=== PATIENT | female | born 1960 | race Caucasian/White ===

== ENCOUNTER 2021-05-24 13:43 | Outpatient (RCR) | payer BC, MEDICAID, SELFPAY ==
--- OUTSIDE RECORDS SUMMARY | 2021-05-24 13:56 | XMS_ITS ---
:1960 Author Care Team Providers Name Role Phone DR. ALLEGRA KLEIN Primary Care Provider [phone] DR. ALLEGRA KLEIN Referring Provider [phone] Allergies Code Code System Name Reaction Severity Status Onset 761980 RxNorm Advil Nausea ? Active ? 113423 RxNorm Aggrenox ? ? Active ? Axert Myalgias ? Active ? (Muscle Pain) 4053 RxNorm Erythromycin Base ? ? Active ? 916316 RxNorm Imitrex ? ? Active ? 759029 RxNorm Lamictal ? ? Active ? 9345692 RxNorm Latex ? ? Active ? 228091 RxNorm Lunesta ? ? Active ? 127170 RxNorm Maxalt ? ? Active ? Pollen Extracts ? ? Active ? 224507 RxNorm Sonata ? ? Active ? Sulfa ? ? Active ? (Sulfonamide Antibiotics) Tree and Shrub ? ? Active ? Pollen 779909 RxNorm Venom-honey Bee ? ? Active ? Wellbutrin ? ? Active ? 529178 RxNorm Zomig ? ? Active ? Medications Name Status Start Date Stop Date ? ? ciprofloxacin 250 mg tablet Active ? Not available Cymbalta 60 mg capsule,delayed release Active ? Not available Take 2 capsules every day by oral route. desonide 0.05 % topical cream Active ? No t available APPLY SPARINGLY AND RUB GENTLY INTO THE AFFECTED AREA(S) BY TOPICAL ROUTE 2 TIMES PER DAY doxycycline hyclate 100 mg capsule Active ? Not available doxycycline monohydrate 100 mg capsule Active ? Not available doxycycline monohydrate 100 mg tablet Active ? Not available Epi E-Z Pen 1:1000 injection syringe Active ? Not available Take 0.03 mL as needed by injection route as needed. fluconazole 150 mg tablet Active ? Not av ailable hydrocodone 5 mg-acetaminophen 325 mg Active ? Not available tablet ketoconazole 2 % topical cream Active ? N ot available lancets 30 gauge Active ? Not available lancing device Active ? Not available nystatin 100,000 unit/gram topical powder Active ? Not available One Touch Ultra Test Strips Active ? Not available use as directed One Touch UltraSoft Lancets Active ? Not available use as directed OneTouch Delica Lancets 33 gauge Active ? Not available OneTouch Ultra Test strips Active ? Not a vailable OneTouch UltraMini kit Active ? Not avail able oxycodone 5 mg tablet Active ? Not availa ble phenazopyridine 200 mg tablet Active ? No t available pramipexole 0.5 mg tablet Active ? Not av ailable Take 1 tablet 3 times a day by oral route. Provigil 200 mg tablet Active ? Not avail able Take 1 tablet every day by oral route. Ritalin 10 mg tablet Active ? Not availab le Take 1 tablet every day by oral route. Ritalin 20 mg tablet Active ? Not availab le Take 1 tablet every day by oral route at noon. Ritalin LA 30 mg capsule,extended release Active ? Not available Take 1 capsule every day by oral route in the morning. triamcinolone acetonide 0.1 % topical Active ? Not available cream Xenical 120 mg capsule Active ? Not avail able Take 1 capsule 3 times a day by oral route with meals. zolpidem ER 12.5 mg tablet,extended release,multiphase Active ? Not available Take 1 tablet every day by oral route at bedtime. Problems Name Status Onset Date Source ? Hyperthyroidism Active 01/09/2016 ? Multinodular Goiter Active 02/14/2016 ? Candidiasis Active 03/13/2016 ? Diabetes Mellitus Active 03/13/2016 ? Hyperlipidemia Active 03/13/2016 ? Morbid Obesity Active 03/13/2016 ? Bipolar Disorder Active 03/13/2016 ? Posttraumatic Stress Disorder Active 03/13/2016 ? Chronic Depression Active 03/13/2016 ? Insomnia Active 03/13/2016 ? Parasomnia Active 03/13/2016 ? Periodic Limb Movement Disorder Active 03/13/2016 ? Restless Legs Active 03/13/2016 ? Chronic Pain Active 03/13/2016 ? Migraine Active 03/13/2016 ? Narcolepsy Active 03/13/2016 ? Carpal Tunnel Syndrome Active 03/13/2016 ? Essential Hypertension Active 03/13/2016 ? Transient Memory Loss Active 03/13/2016 ? Lymphedema Active 03/13/2016 ? Asthma Active 03/13/2016 ? Osteoarthritis Active 03/13/2016 ? Spinal Stenosis of Lumbar Region Active 03/13/2016 ? Chronic Back Pain Active 03/13/2016 ? Tendinitis Active 03/13/2016 ? Myositis Active 03/13/2016 ? Excessive Daytime Sleepiness - Normal Night Active 02/20 ? Sleep Tachycardia Active 03/13/2016 ? Chest Pain Active 03/13/2016 ? Thyroid Hormone Tests Abnormal Active 03/13/2016 ? History of Psychiatric Disorder Unknown 03/13/2016 ? Long-term Drug Therapy Active 03/13/2016 ? Secondary Peripheral Neuropathy Active 03/13/2016 ? Procedures Date Name Performed by ? ? Eye Surgery Procedure Information not av ailable Notes: cataract surgery Results Lab Results Date Name Specimen Result Interpretation Description Value Range Status Address ? ? Glucose, Blood ? Blood 98 ? ? Rhc - Fingerstick, capillary Glucose: Specialty: 103 Blood mg/dl [facility] Past Encounters None recorded. Social History Tobacco Smoking Status Former Smoker Notes: quit 22 years ago Vaccine List None recorded. Plan of Care Reminders Provider Appointments None ? ? recorded. Lab None ? ? recorded. Referral None ? ? recorded. Procedures None ? ? recorded. Surgeries None ? ? recorded. Imaging None ? ? recorded. Vitals Height Weight BMI Blood Pressure 165.1 cm 115.21 kg 42.3 kg/m2 128/80 mm[Hg]
[2021-05-24] MEDS: Normal Saline Flush 10 ML SYR IVP (14:01)
[2021-05-24] MEDS: Heparin 500 UNITS/5 ML SYRINGE IV (14:09)
[2021-05-24 14:38] LABS: Abs Immature Grans 0.08 10^3/uL (0.0-0.06); HCT 42.6 % (36.0-46.0); HGB 13.7 g/dL (11.2-15.7); MCH 32.3 pg (27.0-33.0); MCHC 32.2 % (32.0-36.0); MCV 100.5 fL (80-95); MPV 10.6 fL (8.0-11.0); Nucleated RBC 0 %; Platelet Count 246 10^3/uL (130-400); RBC 4.24 10^6/uL (3.93-5.22); RDW 13.3 % (11.7-14.6); RDW-SD 49.6 fL; WBC 24.86 10^3/uL (4.4-10.8)
[2021-05-24 14:46] LABS: Iron 81 ug/dL (50-170); Total Iron Binding Capacity 273 ug/dL (250-450); Transferrin Sat 30 % (15-50)
[2021-05-24 14:48] LABS: ALT 33 U/L (14-59); AST 19 U/L (15-37); Albumin 3.7 g/dL (3.4-5.0); Alkaline Phosphatase 163 U/L (46-116); Anion Gap 7.8 mmol/L (3-11); BUN 24 mg/dL (7-18); Bilirubin, Total 0.2 mg/dL (0.2-1.0); CO2 29.2 mmol/L (21.0-32.0); Calcium 8.6 mg/dL (8.5-10.1); Chloride 106 mmol/L (98-107); Estimated GFR 56.37 (mL/min/1.73m2); Ferritin 158 ng/mL (8-252); Glucose 87 mg/dL (74-106); Potassium 4.2 mmol/L (3.5-5.1); Sodium 143 mmol/L (136-145); Total Protein 7.3 g/dL (6.4-8.2)
[2021-05-24 14:58] LABS: LDH 170 U/L (81-234)
[2021-05-24 15:05] LABS: Absolute Eosinophil Count 0.75 10^3/uL (0.0-0.7); Absolute Monocyte Count 2.98 10^3/uL (0.1-0.8); Absolute Neutrophil Count 4.23 10^3/uL (1.2-6.7); Bands % 0
[2021-05-24 15:06] LABS: Diff Comment Manual Differential; RBC Morphology Normal
== END 2021-06-20 23:59 | disposition home or self-care (01) ==
LOC: INF 13:43
PROVIDERS: PCP Family Medicine; Visit Provider Internal Medicine Hematology & Oncology
DX: C91.12 Chronic lymphocytic leukemia of B-cell type in relapse (principal); D50.8 Other iron deficiency anemias; Z45.2 Encounter for adjustment and management of vascular access device
CPT/HCPCS: 36591; 80053; 82728; 83540; 83550; 83615; 85025

== ENCOUNTER 2021-11-08 16:12 | Emergency (ER) | payer BC, MEDICAID, SELFPAY ==
[2021-11-08] VITALS (37 sets, daily range): BP systolic 117–155; BP diastolic 60–103; PULSE 103–114; RESP 12–29; TEMP 37.3; O2SAT 94–98
--- NOTE | 2021-11-08 16:00 | RT.EKG_ITS ---
APPROVED REPORT Exam: Resting ECG Reason for Exam: chest pain Patient Location: E HR:112 bpm ECG Measurements Heart Rate 112 AXIS NM 154 P 43 QRSd 88 QRS 47 QT 336 T 41 QTc 459 Conclusion Sinus tachycardia...rate> 99. Sinus. Normal axis. No STEMI. I have reviewed and interpreted ECG and agree with software generated interpretation.
--- NOTE | 2021-11-08 16:13 | ED.GENADUL_ITS ---
Discharge Plan Disposition Patient Disposition: HOME Condition: Improving Discharge Details Clinical Impression: Right-sided chest wall pain, History of chronic lymphocytic leukemia Primary Care Provider: Sonja Navarrete ED Provider: Dawn Ramirez Home Meds and New Rx's Prescriptions: Continued duloxetine [Cymbalta] 60 MG capsule,delayed release(DR/EC) 120 mg PO DAILY Qty: 60 5RF fluticasone propion-salmeterol [Advair Diskus] 1 EACH blister with device 1 puff Inhalation BID 0RF trazodone 150 MG tablet 150 mg PO HS 0RF methylphenidate HCl [Ritalin] 20 MG tablet 20 mg PO TID 0RF Label Comments: 02.07.17 pt states she takes 30mg TID.he Rx Instructions: Dr. Hampton naproxen 500 MG tablet 500 mg PO PRN PRN0RF epinephrine [EpiPen] 0.3 MG/0.3 ML auto-injector 0.3 mg IM PRN PRN0RF albuterol sulfate [ProAir HFA] 8.5 GM HFA aerosol inhaler 2 puff Inhalation PRN PRN0RF clonazepam 1 mg tablet 1 mg TID PRN PRN0RF aripiprazole 5 mg Tablet 5 mg PO DAILY 0RF doxepin 10 mg Capsule 10 mg PO HS 0RF aspirin 81 mg Tablet 81 mg PO DAILY 0RF Trulicity 3 mg/0.5 mL Pen Injector 1.5 mg SUBCUT QWEEK 0RF methylphenidate HCl 20 mg Tablet 60 mg PO DAILY 0RF cyclobenzaprine 5 mg Tablet 5 mg PO TID 0RF Trelegy Ellipta 100-62.5-25 mcg Blister With Device 1 ea INHALATION DAILY 0RF ropinirole 1 mg Tablet 1 mg PO TID 0RF ibuprofen 800 mg Tablet 800 mg PO TID 0RF metoprolol succinate 100 mg Tablet Extended Release 24 Hr 100 mg PO DAILY 0RF venlafaxine 150 mg Capsule,Extended Release 24hr 150 mg PO BID 0RF omeprazole 40 mg Capsule,Delayed Release(Dr/Ec) 40 mg PO DAILY 0RF modafinil 200 mg Tablet 200 mg PO BID 0RF trazodone 150 mg Tablet 150 mg PO QHS 0RF montelukast 10 mg Tablet 10 mg PO QAM 0RF nystatin 100,000 unit/gram Powder TOPICAL QID 0RF ubrogepant 50 mg Tablet 50 mg PO PRN PRN0RF Discharge Instructions Instructions: Chest Wall Pain (ED) Additional Instructions: Your lab work today noted evidence of an elevated white blood cell count consistent with your CLL. Follow-up with your oncologist at [facility] for further evaluation. The remainder of your lab work and EKGs today are reassuring and show no evidence of acute concerning or significant findings. The CT scan of your chest showed no evidence of a blood clot or acute disease in your lungs today. Follow-up with your primary care doctor in 1 week for re-evaluation and for referral for outpatient stress test or rug cleaner hand if your symptoms persist or worsen. Return to the emergency department with any worsening or new concerning symptoms. Discharge Data Discharge Physician: Dawn Ramirez Medical Decision Making 61-year-old female with a history of CLL, obesity, diabetes, COPD, hypertension presents for right-sided chest pain that started in the car while on the way to [facility] for a regular follow-up appointment. Heart rate 110s. Remainder of vitals within normal limits. Low-grade temp at 99.2. EKG notes a rate of 112, sinus, normal at this, no STEMI. Patient has significant tenderness to her right anterior chest but no evidence of cellulitis, trauma or rash. Her lungs are otherwise clear. She has right calf tenderness but otherwise no erythema, edema, ecchymosis. Differential diagnosis includes chest wall strain or sprain, costochondritis, PE. History and presentation does not appear consistent with ACS, or dissection. Considering her age and history, will obtain screening labs, CT chest and give Toradol and reassess. Labs and imaging reviewed. White blood cell count 42, in May it was 24. She states she was told by her oncologist that her white blood cell count has r ecently been increasing secondary to her CLL and they are continuing to monitor it. Normal hemoglobin. Normal electrolytes. Patient had negative initial and delta troponins and [address] chest negative for PE or other acute disease. Her heart rate improved to low 100s. Her pain improved and she felt comfortable going home. She was advised to call her PCP and oncologist tomorrow for follow-up and for referral for outpatient stress test, Holter monitor or echocardiogram if symp toms do not improve or worsen. Usual and customary return precautions given prior to discharge. Medical Records Medical records reviewed: Yes I reviewed the patient's medical records. Imaging Data Radiologic Study: Radiologist's impression: CTA Chest With Contrast Exam date and time: 11/08/2021 6:52 PM Age: 61 years old Clinical indication: Other: R side chest pain, R/O pe TECHNIQUE: Imaging protocol: Computed tomographic angiography of the chest with contrast. 3D rendering (Not supervised by radiologist): MIP and/or 3D reconstructed images were created by the technologist. Contrast material: 350; Contrast volume: 100 ml; Contrast route: INTRAVENOUS (IV);? COMPARISON: No relevant prior studies available. FINDINGS: Tubes, catheters and devices: A central venous catheter is present with the tip in the right atrium. Pulmonary arteries: Normal. No pulmonary emboli. Aorta: Unremarkable. No aortic aneurysm. No aortic dissection. Lungs: Unremarkable. No consolidation. No masses. Pleural spaces: Unremarkable. No pneumothorax. No pleural effusion. Heart: Unremarkable. No cardiomegaly. No pericardial effusion. Lymph nodes: Unremarkable. No enlarged lymph nodes. Liver: The liver appears diffusely decreased in density. Bones/joints: Chronic degenerative changes spine are noted. Soft tissues: Unremarkable. Other findings: Morbid obesity is present. IMPRESSION: 1. No evidence of pulmonary embolism or other acute abnormality. 2. Fatty liver disease. 3. Morbid obesity. 4. Central venous catheter with the tip in the right atrium. Lab Data Lab results reviewed: Yes I reviewed the patient's lab results. Labs: Laboratory Tests Range/Units 11/08/21 11/08/21 11/08/21 16:35 16:35 19:26 WBC (4.4-10.8) 10^3/uL 42.54 H* RBC (3.93-5.22) 10^6/uL 4.34 Hgb (11.2-15.7) g/dL 13.7 Hct (36.0-46.0) % 43.4 MCV (80-95) fL 100.0 H MCH (27.0-33.0) pg 31.6 MCHC (32.0-36.0) % 31.6 L RDW (11.7-14.6) % 12.7 Plt Count (130-400) 10^3/uL 216 MPV (8.0-11.0) fL 10.0 Immature Gran % 0.0 Neutrophils % 13.0 Lymphocytes % 60.0 Atypical Lymphs % 27 Monocytes % 0.0 Eosinophils % 0.0 Basophils % 0.0 Other Cells % Nucleated RBC % (0.0-0.3) % 0.0 Absolute Neutrophils (1.2-6.7) 10^3/uL 5.53 Absolute Lymphocytes (1.2-3.4) 10^3/uL 37.01 H Absolute Monocytes (0.1-0.8) 10^3/uL 0.00 L Absolute Eosinophils (0.0-0.7) 10^3/uL 0.00 Absolute Basophils (0.0-0.2) 10^3/uL 0.00 RBC Morphology Normal Poikilocytosis Sodium (136-145) mmol/L 138 Potassium (3.5-5.1) mmol/L 3.9 Chloride (98-107) mmol/L 103 Carbon Dioxide (21.0-32.0) mmol/L 27.5 Anion Gap (3-11) mmol/L 7.5 BUN (7-18) mg/dL 19 H Creatinine (0.55-1.02) mg/dL 1.0 Estimated GFR/1.73 m2 (mL/min/1.73m2) 56.37 Glucose (74-106) mg/dL 110 H Calcium (8.5-10.1) mg/dL 9.1 Magnesium (1.8-2.4) mg/dL 2.2 Total Bilirubin (0.2-1.0) mg/dL 0.3 AST (15-37) U/L 15 ALT (14-59) U/L 32 Alkaline Phosphatase (46-116) U/L 153 H Troponin I (<or=60) ng/L < 50 < 50 Total Protein (6.4-8.2) g/dL 7.4 Albumin (3.4-5.0) g/dL 3.6 ECG Data Attestation: I personally reviewed and interpreted this ECG (s) as follows: Interpretation: #1 -- Rate of 112, sinus, normal axis, no STEMI. #2 -- Rate of 107, sinus, normal axis, no STEMI. HPI General Mode of arrival: ambulatory . Date/Time Provider Initiated Documentation: 11/08/21 16:12 . Limitations to Documentation: no limitations . Information obtained by: patient . HPI Narrative: Patient is a 61-year-old female with a history of CLL diagnosed in 2019 who presents with right-sided chest pain that started while driving on the way to [facility]. Patient states she was there for a regular follow- up appointment. She states her pain is constant, pressure-like and located on the right side of her chest with occasional radiation to her back. She denies any aggravating or alleviating factors. She denies any known fever, cough, shortness of breath, nausea, vomiting or dizziness. She denies any recent injury or known exposure to coronavirus. Related Data Home Medications Medication Instructions Recorded Confirmed methylphenidate HCl 20 mg tablet 20 mg PO TID 09/25/12 11/08/21 (Ritalin) naproxen 500 mg tablet 500 mg PO PRN PRN 09/25/12 11/08/21 duloxetine 60 mg capsule,delayed 120 mg PO DAILY #60 tab-cap 10/20/12 11/08/21 release (Cymbalta) albuterol sulfate 90 mcg/actuation 2 puff INHALATION PRN PRN 01/07/13 11/08/21 aerosol inhaler (ProAir HFA) epinephrine 0.3 mg/0.3 mL 0.3 mg IM PRN PRN 01/07/13 11/08/21 injection, auto-injector (EpiPen) fluticasone 250 mcg-salmeterol 50 1 puff INHALATION BID puff 01/07/13 11/08/21 mcg/dose blistr powdr for inhalation (Advair Diskus) trazodone 150 mg tablet 150 mg PO HS 02/07/17 11/08/21 aripiprazole 5 mg tablet 5 mg PO DAILY 11/08/21 11/08/21 aspirin 81 mg tablet 81 mg PO DAILY 11/08/21 11/08/21 clonazepam 1 mg tablet 1 mg TID PRN PRN 11/08/21 11/08/21 cyclobenzaprine 5 mg tablet 5 mg PO TID 11/08/21 11/08/21 doxepin 10 mg capsule 10 mg PO HS 11/08/21 11/08/21 dulaglutide 3 mg/0.5 mL 1.5 mg SUBCUT QWEEK 11/08/21 11/08/21 subcutaneous pen injector (Trulicity) fluticasone fur. 100 mcg-umeclid 1 ea INHALATION DAILY 11/08/21 11/08/21 62.5 mcg-vilant 25 mcg inhalat.powder (Trelegy Ellipta) ibuprofen 800 mg tablet 800 mg PO TID 11/08/21 11/08/21 methylphenidate HCl 20 mg tablet 60 mg PO DAILY 11/08/21 11/08/21 metoprolol succinate 100 mg 100 mg PO DAILY 11/08/21 11/08/21 tablet,extended release 24 hr modafinil 200 mg tablet 200 mg PO BID 11/08/21 11/08/21 montelukast 10 mg tablet 10 mg PO QAM 11/08/21 11/08/21 nystatin 100,000 unit/gram topical TOPICAL QID 11/08/21 powder omeprazole 40 mg capsule,delayed 40 mg PO DAILY 11/08/21 11/08/21 release ropinirole 1 mg tablet 1 mg PO TID 11/08/21 11/08/21 trazodone 150 mg tablet 150 mg PO QHS 11/08/21 11/08/21 ubrogepant 50 mg tablet 50 mg PO PRN PRN 11/08/21 11/08/21 venlafaxine 150 mg 150 mg PO BID 11/08/21 11/08/21 capsule,extended release 24 hr Allergies Allergy/AdvReac Type Severity Reaction Status Date / Time cephalexin monohydrate Allergy Severe anaphylaxis Unverified 11/08/21 16:43 [From Keflex] erythromycin base Allergy Severe Unverified 11/08/21 16:43 latex Allergy Severe face Unverified 11/08/21 16:43 swells/itchy Sulfa (Sulfonamide Allergy Severe anaphylaxis Unverified 11/08/21 16:43 Antibiotics) sumatriptan [From Imitrex] Allergy Severe throat Unverified 11/08/21 16:43 closed venom-honey bee Allergy Severe anaphylaxis Unverified 11/08/21 16:43 zaleplon [From Sonata] Allergy Severe stops Unverified 11/08/21 16:43 breathing lamotrigine [From Lamictal] Allergy Intermediate hives Unverified 11/08/21 16:43 dipyridamole Allergy Unknown Unverified 11/08/21 16:43 pregabalin [From Lyrica] Allergy Unknown Unverified 11/08/21 16:43 eszopiclone [From Lunesta] Allergy Swelling/Ed Unverified 11/08/21 16:43 pacheco Macrolide Antibiotics Allergy anaphylaxis Unverified 11/08/21 16:43 zolmitriptan [From Zomig] AdvReac Intermediate body aches Unverified 11/08/21 16:43 iodine AdvReac Mild anxiety Unverified 11/08/21 16:43 bupropion [From Wellbutrin] AdvReac Other (See Unverified 11/08/21 16:43 Comment) zolpidem tartrate AdvReac out of Unverified 11/08/21 16:43 [From Ambien] body, Ambien sleepwalk General Stated Complaint: Chest Pain PAZ: 3 Review of Systems All systems reviewed & are unremarkable except as noted in HPI and below Constitutional Constitutional: Reports as per HPI, Denies chills, Denies excessive sweating, Denies fatigue and Denies fever(s) Eyes Eyes: Denies blurry vision ENT Ears, Nose, Mouth, and Throat: Denies dizziness, Denies sore throat and Denies throat swelling Cardiovascular Cardiovascular: Reports chest pain and Denies dyspnea Respiratory Respiratory: Denies cough and Denies dyspnea Gastrointestinal Gastrointestinal: Denies abdominal pain, Denies diarrhea and Denies vomiting Genitourinary Genitourinary: Denies hematuria and Denies dysuria Musculoskeletal Musculoskeletal: Denies back pain and Denies numbness Integumentary/Breasts Skin/Breast: Denies lesions and Denies rash Neurologic Neurologic: Denies behavioral changes, Denies confusion, Denies dizziness, Denies localized weakness and Denies numbness Psychiatric Psychiatric: Denies behavioral changes, Denies confusion and Denies depression Endocrine Endocrine: Denies excessive sweating and Denies fatigue Hematologic/Lymphatic Hematologic/Lymphatic: Denies easy bruising and Denies lymphadenopathy Allergic/Immunologic Allergic/Immunologic: Denies throat swelling PFSH All Active Problems (Updated 11/08/21 @ 20:07 by Dawn Ramirez DO) Right-sided chest wall pain (Acute) History of chronic lymphocytic leukemia (Acute) Medical History (Updated 11/08/21 @ 20:07 by Dawn Ramirez DO) CLL (chronic lymphocytic leukemia) COPD (chronic obstructive pulmonary disease) Diabetes HTN (hypertension) Narcolepsy Surgical History (Updated 11/08/21 @ 16:27 by Edna Fair RN) Gastric bypass status for obesity H/O shoulder surgery History of section History of cholecystectomy History of hernia repair Social History Smoking/Tobacco Use Status: Former Tobacco Use Smoking risk assessment performed?: Yes Alcohol Intake: never Drug use: Never Substance use type: marijuana Do you feel safe at home: Yes Do you feel safe in your relationship?: Yes Exam Const General: cooperative and healthy appearing Orientation: alert and awake [facility] Head: normal to inspection Ears: hearing grossly normal bilaterally and external ears normal General nose exam: external nose normal Face and sinus: normal facial exam Mouth: oral mucosae normal Eyes General: appearance normal, both eyes and all related structures Eyelids: eyelids normal Pupils: PERRL EOM: EOM intact bilaterally Neck Neck: normal visual inspection Lymphatic: no lymphadenopathy noted Chest Chest: normal inspection of the chest Chest/axillae images: 1. Localized area of tenderness to palpation to the right anterior chest. Resp Effort & Inspection: normal respiratory effort and able to speak in complete sentences Auscultation: clear to auscultation bilaterally Cardio Rate: tachycardic Rhythm: regular rhythm GI Inspection: normal to inspection Palpation: soft, not firm, no guarding, no hepatosplenomegaly, no masses and nontender Auscultation: hypoactive bowel sounds Back/Spine/Pelvis Back: no CVA tenderness Skin General skin exam: no rashes or lesions noted Neuro General: patient alert and patient awake Cognition: normal cognition Speech: speech normal Gait: normal gait Motor: muscle tone normal throughout Sensory Exam: no sensory deficits noted Extrem General: normal to inspection, full ROM and capillary refill normal Psych Appearance: grossly normal Mental Status: mental status grossly normal Speech and Movement: speech and movement normal Affect: normal affect Thought Process: normal
--- NOTE | 2021-11-08 16:45 | DI.CT_ITS ---
Exam(s) CT CHEST PE CTA EXAM: CT CHEST PE CTA CLINICAL HISTORY: R sided chest pain, r/o PE. TECHNIQUE: Imaging Protocol: CT angiography of the chest was performed using pulmonary embolus sabrina col. Multi planar reconstructions were performed. CONTRAST MATERIAL: Intravenous: Omnipaque 350 Contrast volume: 100 cc COMPARISON: CT CHEST WITH CONTRAST from 01/19/2009 FINDINGS: CHEST: PULMONARY ARTERIES: There are no intraluminal filling defects to suggest acute pulmonary emboli. LUNGS: No infiltrates nor pleural effusions. There is a 4 millimeter nodule in the right upper lobe. Also in others 3 millimeter noncalcified nodule laterally in the right lung. No significant nodule s evident in the opposite-left lung. Some ground-glass density towards the lung bases noted is proba livan related to air trapping given its symmetry. No pleural effusions. No pneumothorax. MEDIASTINUM: There is no hilar adenopathy. There are few small right paratracheal lymph nodes. Also subcarinal lymph nodes. Visualized thyroid unremarkable. CARDIAC: Heart size is upper normal. There is no pericardial effusion.Caliber of the thoracic aorta is within normal limits. No dissection. There is no significant shift of the interventricular septum . PARTIALLY VISUALIZED UPPERMOST ABDOMEN: Hepatic steatosis. No splenomegaly. No adrenal masses. The re is evidence of prior bariatric surgery. No adrenal masses. OSSEOUS: No significant osseous lesions.No fractures. Chronic degenerative findings noted in the spi nal column.. IMPRESSION: 1. No evidence of acute pulmonary emboli. No evidence of pulmonary infarction.No pleural effusions. Some air trapping noted. 2. Small right lung nodules as described above, somewhat difficult to evaluate because of respiratory motion artifact here but do not appear to have been present on prior CT scan of 2008. Recommend fol low-up CT scan in 6 months. 3. Previous bariatric surgery. RADIATION DOSE DELIVERED: 621.78mGy.cm Total DLP DATA REPOSITORY: All CT scans at this facility are submitted to the National Radiology Data Registry (NRDR) Dose Index Registry (DIR) with the [employer] (A[employer]). RADIATION OPTIMIZATION: All CT scans at this facility use at least one of these dose optimization te chniques: automated exposure control; mA and/or kV adjustment per patient size (includes targeted exa ms where dose is matched to clinical indication); or iterative reconstruction.
[2021-11-08 16:47] LABS: Abs Immature Grans 0.38 10^3/uL (0.0-0.06); HCT 43.4 % (36.0-46.0); HGB 13.7 g/dL (11.2-15.7); MCH 31.6 pg (27.0-33.0); MCHC 31.6 % (32.0-36.0); Platelet Count 216 10^3/uL (130-400); RBC 4.34 10^6/uL (3.93-5.22); RDW 12.7 % (11.7-14.6); RDW-SD 47.3 fL
[2021-11-08 17:04] LABS: ALT 32 U/L (14-59); AST 15 U/L (15-37); Albumin 3.6 g/dL (3.4-5.0); Alkaline Phosphatase 153 U/L (46-116); Anion Gap 7.5 mmol/L (3-11); BUN 19 mg/dL (7-18); Bilirubin, Total 0.3 mg/dL (0.2-1.0); CO2 27.5 mmol/L (21.0-32.0); Calcium 9.1 mg/dL (8.5-10.1); Chloride 103 mmol/L (98-107); Estimated GFR 56.37 (mL/min/1.73m2); Glucose 110 mg/dL (74-106); Magnesium 2.2 mg/dL (1.8-2.4); Potassium 3.9 mmol/L (3.5-5.1); Sodium 138 mmol/L (136-145); Total Protein 7.4 g/dL (6.4-8.2); Troponin I < 50 ng/L (<or=60)
[2021-11-08 17:08] LABS: WBC 42.54 10^3/uL (4.4-10.8)
[2021-11-08] MEDS: LORazepam 2 MG/ML VIAL 0.5 MG IVP (17:27)
[2021-11-08 17:29] LABS: Absolute Lymphocyte Count 37.01 10^3/uL (1.2-3.4); Absolute Neutrophil Count 5.53 10^3/uL (1.2-6.7); Atypical Lymphocytes % 27
[2021-11-08 17:30] LABS: Diff Comment Manual Differential; RBC Morphology Normal
[2021-11-08] MEDS: Normal Saline 500 ML IV (17:33)
--- NOTE | 2021-11-08 18:15 | RT.EKG_ITS ---
APPROVED REPORT Exam: Resting ECG Reason for Exam: chest pain Patient Location: E HR:107 bpm ECG Measurements Heart Rate 107 AXIS MI 160 P 50 QRSd 86 QRS 44 QT 350 T 42 QTc 468 Conclusion Sinus tachycardia...rate> 99. Sinus. Normal axis. No STEMI. I have reviewed and interpreted ECG and agree with software generated interpretation.
[2021-11-08] MEDS: Omnipaque 350 MG/ML 100 ML BTL IJ (19:00)
--- NOTE | 2021-11-08 19:11 | DI.VRAD_ITS ---
PROCEDURE INFORMATION: Exam: CTA Chest With Contrast Exam date and time: 11/08/2021 6:52 PM Age: 61 years old Clinical indication: Other: R side chest pain, R/O pe TECHNIQUE: Imaging protocol: Computed tomographic angiography of the chest with contrast. 3D rendering (Not supervised by radiologist): MIP and/or 3D reconstructed images were created by the technologist. Contrast material: 350; Contrast volume: 100 ml; Contrast route: INTRAVENOUS (IV); COMPARISON: No relevant prior studies available. FINDINGS: Tubes, catheters and devices: A central venous catheter is present with the tip in the right atrium. Pulmonary arteries: Normal. No pulmonary emboli. Aorta: Unremarkable. No aortic aneurysm. No aortic dissection. Lungs: Unremarkable. No consolidation. No masses. Pleural spaces: Unremarkable. No pneumothorax. No pleural effusion. Heart: Unremarkable. No cardiomegaly. No pericardial effusion. Lymph nodes: Unremarkable. No enlarged lymph nodes. Liver: The liver appears diffusely decreased in density. Bones/joints: Chronic degenerative changes spine are noted. Soft tissues: Unremarkable. Other findings: Morbid obesity is present. IMPRESSION: 1. No evidence of pulmonary embolism or other acute abnormality. 2. Fatty liver disease. 3. Morbid obesity. 4. Central venous catheter with the tip in the right atrium. Dictated and Authenticated by: Mandeep Mejia MD. Ordering:ARIEL Seymour MD
[2021-11-08 19:55] LABS: Troponin I < 50 ng/L (<or=60)
[2021-11-08] MEDS: Heparin 500 UNITS/5 ML SYRINGE (20:25)
[2021-11-08] MEDS: Lidocaine 5% Patch 1 PATCH TP (20:28)
[2021-11-08 20:57] LABS: TSH (W/Ref FT4) 1.36 uIU/mL (0.36-3.74)
== END 2021-11-08 20:35 | disposition home or self-care (01) ==
PROVIDERS: Emergency Provider Physician Assistant; PCP Family Medicine
DX: R07.89 Other chest pain (principal); C91.10 Chronic lymphocytic leukemia of B-cell type not having achieved remission
CPT/HCPCS: 71275; 80053; 93005; 96361; 96374; 99285; 83735; 84443; 84484; 85025; 93010; 99284; J2060; J3490

== ENCOUNTER 2023-05-01 08:39 | Outpatient (RCR) | payer BC, MEDICAID, SELFPAY ==
[2023-05-01 12:48] LABS: Abs Immature Grans 0.24 10^3/uL (0.0-0.06); HCT 35.8 % (36.0-46.0); HGB 10.8 g/dL (11.2-15.7); MCH 29.8 pg (27.0-33.0); MCHC 30.2 % (32.0-36.0); MCV 99 fL (80-95); MPV 10.5 fL (8.0-11.0); Platelet Count 215 10^3/uL (130-400); RBC 3.62 10^6/uL (3.93-5.22); RDW 14.9 % (11.7-14.6); RDW-SD 53.3 fL
[2023-05-01] MEDS: Heparin 500 UNITS/5 ML SYRINGE (12:51)
[2023-05-01] MEDS: Normal Saline Flush 10 ML SYR IVP (12:52)
[2023-05-01 13:21] LABS: Absolute Monocyte Count 2.85 10^3/uL (0.1-0.8); Absolute Neutrophil Count 5.69 10^3/uL (1.2-6.7); WBC 142.26 10^3/uL (4.4-10.8)
[2023-05-01 13:22] LABS: Diff Comment Manual Differential; Other Cells % 10; RBC Morphology Normal
[2023-05-01 13:25] LABS: ALT 17 U/L (14-59); AST 20 U/L (15-37); Albumin 3.5 g/dL (3.4-5.0); Alkaline Phosphatase 212 U/L (46-116); Anion Gap 6.8 mmol/L (3-11); BUN 17 mg/dL (7-18); Bilirubin, Total 0.4 mg/dL (0.2-1.0); CO2 28.2 mmol/L (21.0-32.0); CREATININE 0.9 mg/dL (0.55-1.02); Calcium 8.9 mg/dL (8.5-10.1); Chloride 107 mmol/L (98-107); Estimated GFR 71.83 (mL/min/1.73m2); Ferritin 56 ng/mL (8-252); Glucose 100 mg/dL (74-106); Sodium 142 mmol/L (136-145)
[2023-05-01 13:39] LABS: LDH 239 U/L (81-234)
[2023-05-01 13:45] LABS: Iron 87 ug/dL (50-170); Total Iron Binding Capacity 302 ug/dL (250-450); Transferrin Sat 29 % (15-50)
[2023-05-02 09:32] LABS: IgG 713 mg/dL (610-1616)
== END 2023-05-21 23:59 | disposition home or self-care (01) ==
LOC: INF 08:39
PROVIDERS: Nurse Practitioner Adult Health; PCP Family Medicine; Visit Provider Internal Medicine Hematology & Oncology
DX: C91.12 Chronic lymphocytic leukemia of B-cell type in relapse (principal); Z45.2 Encounter for adjustment and management of vascular access device
CPT/HCPCS: 36591; 80053; 82784; 82728; 83540; 83550; 83615; 85025

== ENCOUNTER 2023-08-14 02:16 | Outpatient (RCR) | payer BC, MEDICAID, SELFPAY ==
--- OUTSIDE RECORDS SUMMARY | 2023-08-14 02:21 | XMS_ITS | Continuity of Care Document ---
Author Name Unknown Organization [facility] Address [address] [place] [address] Care Team Providers Care Communication Professor Name Role Phone Quiana Tejeda Primary Care Physician [facility] 08/07/23 - 08/07/23 [facility] [address] [place] [address] Discharge Disposition: Home or Self Care Attending Physician: Desiree Mendse MD Admitting Physician: Desiree Mendes MD Referring Physician: Desiree Mendes MD Allergies, Adverse Reactions, Alerts Substance Reaction Severity Status BEE POLLEN Anaphylactic reaction Unknown Active ibuprofen Nausea Unknown Active erythromycin Anaphylactic reaction Unknown Active cephalexin Anaphylaxis Severe Active zolpidem Other Unknown Active rizatriptan 1 Unknown Unknown Active aspirin-dipyridamole 2 Unknown Unknown Activ e zaleplon 3 Dyspnea Severe Active Bee Stings Unknown Severe Active sulfa drugs Unknown Unknown Active macrolide antibiotics Anaphylaxis Severe Active eszopiclone 4 Unknown Unknown Active buPROPion 5 Unknown Unknown Active pregabalin Unknown Unknown Active sulfacetamide sodium ophthalmic Unknown Unknown Active Ambien Unknown Active Wellbutrin Unknown Unknown Active Axert Muscle pain Unknown Active SUMAtriptan 6 Unknown Unknown Active ZOLMitriptan 7 Unknown Unknown Active lamoTRIgine 8 Urticaria Moderate Active mixed grass pollens allergen extract Unknown Unkn own Active Grass Unknown Active Latex Swelling Itching Severe Active Bumble Bee Sting Anaphylaxis Severe Active Tree Pollen Unknown Active Dust Unknown Active 1Outside Source Comment: Swelling 2Outside Source Comment: Headache 3Outside Source Comment: Stopped breathing Stops breathing 4Outside Source Comment: Metallic taste in mouth, ineffective 5Outside Source Comment: Mood swings 6Outside Source Comment: Throat closes 7Outside Source Comment: %22Flu%22 symptoms 8Outside Source Comment: Swelling Assessment and Plan Future Appointments Future Scheduled Tests Radiology* CT Chest w/o Contrast 09/20/22 Immunizations Given and Recorded Vaccine Date Status Refusal Reason zoster vaccine, inactivated 06/12/23 Given zoster vaccine, inactivated 11/09/20 Recorded zoster vaccine, inactivated 1 07/11/20 Recorded Hep B, unspecified formulation 05/18/23 Recorded Hep A, unspecified formulation 05/18/23 Recorded SARS-COV-2 (COVID-19) vaccine, unspecifi 05/18/23 Recorded influenza virus vaccine, inactivated 03/14/23 Everardo rded influenza virus vaccine, inactivated 04/13/14 Everardo rded influenza virus vaccine, inactivated 05/16/05 Everardo rded RSV vaccine preF3, recombinant 03/14/23 Recorded hepatitis A-hepatitis B vaccine 03/14/23 Recorded hepatitis A-hepatitis B vaccine 03/14/23 Recorded SARS-CoV-2 mRNA (alexis 12y+) bival 04/18/22 Recorded SARS-CoV-2 (COVID-19) mRNA-1273 vaccine 11/15/21 R ecorded SARS-CoV-2 (COVID-19) mRNA-1273 vaccine 05/15/21 R ecorded SARS-CoV-2 (COVID-19) mRNA-1273 vaccine 09/09/20 R ecorded SARS-CoV-2 (COVID-19) mRNA-1273 vaccine 08/11/20 R ecorded influenza virus vaccine, live 03/31/21 Recorded influenza virus vaccine, live 04/04/20 Recorded influenza virus vaccine, live 05/10/19 Recorded influenza virus vaccine, live 05/10/15 Recorded pneumococcal 23-polyvalent vaccine 04/04/20 Record ed pneumococcal 23-polyvalent vaccine 05/10/15 Record ed tetanus-diphth toxoids (Td) adult/adol 02/25/20 Re corded tetanus-diphth toxoids (Td) adult/adol 07/22/80 Re corded zoster vaccine live 03/04/17 Recorded tetanus/diphth/pertuss (Tdap) adult/adol 02/05/07 Recorded 1Result Comment: Patient tolerated well Medications Albuterol (Eqv-Proventil HFA) 90 mcg/inh inhalation aerosol 2 puffs, Inhale, every 6 hr, PRN NEEDED, # 6.7 g, 2 Refill(s), Pharmacy: [facility], 165, cm, 04/18/23 10:10:00 EDT, Height, 107.3, kg, 06/12/23 10:34:00 EST, Weight Dosing Start Date: 06/30/23 Status: Ordered ARIPiprazole 5 mg oral tablet 1 tab, Oral, Daily, # 90 tab, 0 Refill(s), Pharmacy: [facility], 165, cm, 04/18/23 10:10:00 EDT, Height, 107.3, kg, 06/12/23 10:34:00 EST, Weight Dosing Start Date: 06/19/23 Stop Date: 09/17/23 Status: Ordered armodafinil 250 mg oral tablet 250 mg = 1 tab, Oral, Daily, # 30 tab, 5 Refill(s), Pharmacy: [facility], 165, cm, 04/18/23 10:10:00 EDT, Height, 107.3, kg, 06/12/23 10:34:00 EST, Weight Dosing Start Date: 07/04/23 Status: Ordered Aspirin Low Dose 81 mg oral delayed release tablet See Instructions, TAKE ONE TABLET BY MOUTH EVERY DAY, # 90 tab, 3 Refill(s), [facility]: [facility], 168, cm, 11/13/22 21:47:00 EDT, Height/Length Dosing, 124, kg, 11/13/22 21:47:00 EDT, Weight Dosing Start Date: 02/08/23 Status: Ordered atorvastatin 20 mg oral tablet 1 tab, Oral, Daily, # 90 tab, 0 Refill(s), Pharmacy: [facility], 168, cm, 11/13/22 21:47:00 EDT, Height/Length Dosing, 124, kg, 11/13/22 21:47:00 EDT, Weight Dosing Start Date: 03/07/23 Status: Ordered Botox 200 units injection IM, 200 Unknown, 1 Refill(s), 0 Refill(s) Start Date: 09/23/22 Status: Ordered busPIRone 15 mg oral tablet 15 mg = 1 tab, Oral, BID, # 180 tab, 0 Refill(s), Pharmacy: [facility], 165, cm, 04/18/2310:10:00 EDT, Height, 107.3, kg, 06/12/23 10:34:00 EST, Weight Dosing Start Date: 06/19/23 Stop Date: 09/17/23 Status: Ordered clindamycin 300 mg oral capsule 300 mg = 1 cap, Oral, BID, # 6 cap, 0 Refill(s), Pharmacy: [facility], 168, cm, 07/18/23 7:04:00 EST, Height, 103, kg, 07/18/23 7:43:00 EST, Weight Dosing Start Date: 07/18/23 Stop Date: 07/21/23 Status: Ordered clotrimazole 1% topical cream See Instructions, APPLY TOPICALLY TWO TIMES A DAY TO AFFECTED AREA NEEDED, # 15 g, 1 Refill(s), Pharmacy: [facility], 170, cm, 06/07/22 14:50:00 EST, Height/Length Dosing, 124, kg, 06/07/22 14:50:00 EST, Weight Dosing Start Date: 07/12/22 Status: Ordered CPAP supplies CPAP supplies, please dispense all CPAP supplies as needed, she is using a Dreamstation 2 and she needs a new full face mask (interested in trying a Resmed Airfit F30i or similar). Please contact herto schedule supply delivery. Reliable, Supply, See instructions, # 1 EA, 0 Refill(s) Start Date: 01/01/22 Status: Ordered doxepin 25 mg oral capsule 25 mg = 1 cap, Oral, every night at bedtime, # 90 cap, 3 Refill(s), Pharmacy: [facility],167.64, cm, 07/23/22 10:23:00 EST, Height/Length Dosing, 122.47, kg, 07/23/22 10:23:00 EST, Weight Dosing Start Date: 11/08/22 Status: Ordered DULoxetine 60 mg oral delayed release capsule 2 cap, Oral, every night at bedtime, DO NOT CRUSH. OR SWALLOW., # 180 EA, 1 Refill(s), Pharmacy: [facility], 165, cm, 04/18/23 10:10:00 EDT, Height, 106, kg, 04/18/23 10:10:00 EDT, Weight Dosing Start Date: 06/02/23 Status: Ordered EPINEPHrine 0.3 mg injectable kit See Instructions, USE DIRECTED, # 2 mL, 0 Refill(s), Pharmacy: [facility], 168, cm, 07/29/23 15:42:00 EST, Height, 103, kg, 07/29/23 15:45:00 EST, Weight Dosing Start Date: 07/29/23 Status: Ordered fluticasone 50 mcg/inh nasal spray See Instructions, SPRAY TWO SPRAYS IN EACH NOSTRIL EVERY DAY, # 16 mL, 0 Refill(s), Pharmacy: [facility], 168, cm, 07/29/23 15:42:00 EST, Height, 103, kg, 07/29/23 15:45:00 EST, Weight Dosing Start Date: 07/29/23 Status: Ordered hydrocortisone 2.5% topical cream 1 li, Topical, Daily, PRN other (see comment), Take as needed, # 30 g, 0 Refill(s), Pharmacy: [facility], 168, cm, 11/13/22 21:47:00 EDT, Height/Length Dosing, 124, kg, 11/13/22 21:47:00 EDT, Weight Dosing Start Date: 11/14/22 Status: Ordered methylphenidate 20 mg oral tablet 20 mg = 1 tab, Oral, TID, # 90 tab, 0 Refill(s), Pharmacy: [facility], 168, cm, 07/29/23 15:42:00 EST, Height, 103, kg, 07/29/23 15:45:00 EST, Weight Dosing Start Date: 07/31/23 Status: Ordered Metoprolol Succinate ER 100 mg oral tablet, extended release 1 tab, Oral, Daily, # 90 tab, 0 Refill(s), Pharmacy: [facility], 165, cm, 04/18/23 10:10:00 EDT, Height, 107.3, kg, 06/12/23 10:34:00 EST, Weight Dosing Start Date: 07/02/23 Status: Ordered modafinil 200 mg oral tablet See Instructions, 1 tab Oral QAM and noon, # 60 tab, 5 Refill(s), Pharmacy: [facility], 165, cm, 04/18/23 10:10:00 EDT, Height, 106, kg, 04/18/23 10:10:00 EDT, Weight Dosing Start Date: 05/31/23 Status: Ordered montelukast 10 mg oral tablet 10 mg = 1 tab, Oral, every evening, # 90 tab, 3 Refill(s), Pharmacy: [facility], 167.64, cm, 07/23/22 10:23:00 EST, Height/Length Dosing, 122.47, kg, 07/23/22 10:23:00 EST, Weight Dosing Start Date: 09/19/22 Status: Ordered omeprazole 40 mg oral delayed release capsule See Instructions, Take 1 capsule by mouth once daily, # 90 cap, 0 Refill(s), Pharmacy: [facility], 165, cm, 04/18/23 10:10:00 EDT, Height, 107.3, kg, 06/12/23 10:34:00 EST, Weight Dosing Start Date: 06/12/23 Status: Ordered ONE TOUCH DELICA PLUS 33G LANCETS ONE TOUCH DELICA PLUS 33G LANCETS Start Date: 04/26/20 Status: Ordered ONETOUCH ULTRA 2 KIT ONETOUCH ULTRA 2 KIT, 0 Refill(s) Start Date: 12/21/21 Status: Ordered rOPINIRole 1 mg oral tablet 1 tab, Oral, TID, PRN as needed, # 90 tab, 1 Refill(s), Pharmacy: [facility], 168, cm, 07/18/23 7:04:00 EST, Height, 103, kg, 07/18/23 7:43:00 EST, Weight Dosing Start Date: 07/29/23 Status: Ordered traMADol 50 mg oral tablet 50 mg = 1 tab, Oral, TID, PRN as needed for pain, # 90 tab, 0 Refill(s), Pharmacy: [facility], 168, cm, 07/29/23 15:42:00 EST, Height, 103, kg, 07/29/23 15:45:00 EST, Weight Dosing Start Date: 07/31/23 Stop Date: 08/30/23 Status: Ordered traZODone 50 mg oral tablet 50 mg = 1 tab, Oral, every night at bedtime, # 90 tab, 0 Refill(s), Pharmacy: [facility],165, cm, 04/18/23 10:10:00 EDT, Height, 107.3, kg, 06/12/23 10:34:00 EST, Weight Dosing Start Date: 06/19/23 Stop Date: 09/17/23 Status: Ordered Trelegy Ellipta 200 mcg-62.5 mcg-25 mcg/inh inhalation powder 1 puffs, Inhale, Daily Start Date: 09/19/21 Status: Ordered Trulicity Pen 3 mg/0.5 mL subcutaneous solution See Instructions, INJECT 3 MG SUBCUTANEOUSLY ONCE WEEKLY, # 2 mL, 0 Refill(s), Pharmacy: [facility], 168, cm, 07/29/23 15:42:00 EST, Height, 103, kg, 07/29/23 15:45:00 EST, Weight Dosing Start Date: 08/05/23 Status: Ordered Ubrelvy 50 mg oral tablet 50 mg = 1 tab, Oral, Once, PRN as needed for migraine headache, may repeat dose in 2 hours if needed, # 10 tab, 0 Refill(s), Pharmacy: [facility], 165, cm, 04/18/23 10:10:00 EDT, Height, 107.3, kg, 06/12/23 10:34:00 EST, Weight Dosing Start Date: 06/12/23 Status: Ordered venlafaxine 150 mg oral capsule, extended release 150 mg = 1 cap, Oral, every night at bedtime, # 90 cap, 0 Refill(s), Pharmacy: [facility], 165, cm, 04/18/23 10:10:00 EDT, Height, 107.3, kg, 06/12/23 10:34:00 EST, Weight Dosing Start Date: 06/19/23 Stop Date: 09/17/23 Status: Ordered venlafaxine 37.5 mg oral capsule, extended release 37.5 mg = 1 cap, Oral, Daily, # 90 cap, 0 Refill(s), Pharmacy: [facility], 165, cm, 04/18/23 10:10:00 EDT, Height, 107.3, kg, 06/12/23 10:34:00 EST, Weight Dosing Start Date: 06/19/23 Stop Date: 09/17/23 Status: Ordered Problem List Condition Confirmation Course Effective Dates Status H ealth Status Informant Angina pectoris Confirmed Active Arthropathy Confirmed Active Asthma Confirmed Active Backache Confirmed Active Bipolar disorder with moderate depression Confirmed Active Trochanteric bursitis of right hip Confirmed Active Candidiasis Confirmed 03/13/16 Active Carpal tunnel syndrome Confirmed Active Cataplexy and narcolepsy 1 Confirmed Active Chest pain Confirmed 03/13/16 Active Chronic back pain Confirmed 03/13/16 Active Chronic lymphoid leukemia in relapse 2 Confirmed 01/26/20 Active Chronic obstructive lung disease 3 Confirmed 04/06/19 Active Chronic pain Confirmed 03/13/16 Active Bipolar 1 disorder, depressed Confirmed Active Depressive disorder 4 Confirmed Active Depressive disorder Confirmed 01/08/11 Active Presence of neurostimulator Confirmed Active Diabetes mellitus Confirmed 03/13/16 Active Diarrhea Confirmed Active Essential hypertension Confirmed 03/13/16 Active Excessive daytime sleepiness - normal night sleep Confirmed 03/13/16 Active Fibromyalgia Confirmed 09/08/09 Active 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 Active Hyperlipidemia Confirmed Active Hypersomnia Confirmed Active Hypertensive disorder Confirmed Active Hyperthyroidism Confirmed 01/09/16 Active Idiopathic osteoarthritis 6 Confirmed Active Fecal incontinence Confirmed Active Insomnia Confirmed 03/13/16 Active Intertrigo Confirmed 06/13/15 Active Iron deficiency anemia secondary to inadequate dietary iron intake 7 Confirmed 01/26/20 Active Joint pain Confirmed Active Long-term drug therapy Confirmed 03/13/16 Active Low back pain Confirmed 02/10/10 Active Lumbosacral radiculopathy Confirmed Active Lymphedema praecox Confirmed Active Lymphoid leukemia 8 Confirmed 04/06/19 Active Major depressive disorder Confirmed 09/08/09 Active Medication overuse headache Confirmed 04/26/21 Active Migraine without aura Confirmed Active Mixed hyperlipidemia Confirmed Active Morbid obesity Confirmed 03/13/16 Active Myositis Confirmed 03/13/16 Active Narcolepsy Confirmed 03/13/16 Active Neuropathy Confirmed Active Obstructive sleep apnea syndrome 9 Confirmed Active Osteoarthritis Confirmed Active Pain in bilateral legs Confirmed 02/10/10 Active Pain in right knee Confirmed Active Parasomnia Confirmed 03/13/16 Active adult health examination Confirmed Active Annual physical exam Confirmed Active Periodic limb movement disorder Confirmed Active Physical activity finding 10 Confirmed 09/08/09 Active Posttraumatic stress disorder Confirmed Active Prolapsed thoracic intervertebral disc 11 Confirmed 10/19/09 Active Restless legs Confirmed Active Sciatica Confirmed Active Secondary peripheral neuropathy Confirmed 03/13/16 Active Severe obesity Confirmed Active Spinal stenosis of lumbar region Confirmed Active Spinal stenosis of lumbar region 12 Confirmed 09/08/09 Active Tachycardia Confirmed 03/13/16 Active Tendinitis Confirmed 03/13/16 Active Thyroid hormone tests outside reference range Confirmed 03/13/16 Active Thyrotoxicosis Confirmed Active Toxic effect of venom Confirmed Active Transient memory loss Confirmed 03/13/16 Active Type 2 diabetes mellitus without complication 13 Confirmed Active Vitamin B12 deficiency anemia due to dietary causes Confirmed 02/10/20 Active 1From 11-03-2021 visit: Taking methylphenidate 20 mg TID, modafinil 200 mg BID. She still has significant sleepiness thoughI think this is multifactorial (CLL, DM, obesity, fibromyalgia, medication side effects, inadequateCPAP use etc). She is not a good candidate for Wakix given the number of other medications she is on which have interactions with Wakix. I discussed the option of trying Sunosi in place of modafinil and she was interested in trying this. She will continue modafinil and methylphenidate. 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 Positive for CD5, CD19, CD20, dim CD22, CD23, and HLA-DR. Negative for FMC-7, CD10, and both lambda and kappa light chains. WBC 10-15k range. Normal H/H and Plt. ANC 2-4k. January 2020 - CT N, CAP stable. Small inguinal adenopathy. 3From 09-20-2021 visit: Breathing at baseline, recovering from covid infection, c/w breathing tx. 4From 08-17-2021 visit: Luz returns to clinic today for follow-up. She is a transfer from Dr. Nolasco. She states my anxiety is ness high. A lot of her anxiety is due to fears of raffy COVID given her chronic medical conditions. Luz has been out of medications for the last. Specifically her Abilify and Klonopin. During that time she notes that she has been much more anxious. We discussed her previous diagnosis of PTSD. She is able to describe her triggers. She continues to have infrequent nightmares. She does describe flashbacks. We reviewed her past history some. She has a history of 2 previous hospitalizations related to PTSD symptomatology. Her her mother passed last month from complications of COVI D. She is eating and sleeping okay. Narcolepsy appears to be well managed. Plan: 1. Continue current medications as written: Effexor XR 150 mg p.o. nightly, Abilify 5 mg every morning, and Klonopin 1 mg p.o. twice daily. 2. Patient was encouraged to pursue her interest which are crocheting and drawing. 3. She is to follow-up with [facility] in May for her leukemia, COPD, and narcolepsy. 4. RTC in 3 months. 5From 12-10-2018 visit: She tells me she is just about out of her Cymbalta and asks me to fill it today. This is NOT something I have prescribed for her and she takes it for fibromyalgia/depression which I am not treating. I asked her to have her PCP prescribe it who she tells me is now Dr. Kearney and she told me he won't prescribe it which seems odd to me. I am going to have Abril reach out to his staff to see if this is the case. This is not a drug that I want to take over but I will fill it today because shesays she is in a lot of pain if she is unable to take it. 6From 11-07-2020 visit: Chronic knee and ankle pains 7Outside Source Comment: Overview: H/o Gastric Bypass. EGD/[place] ordered January 2020 - pending to date. IV iron per Dr Kearney in [place]. 8From 09-20-2021 visit: Pt followed previously with [facility], last seen in 05/2021. WBC showing critically elevated levels at >41. Pt aware of labs, which have also been faxed over to [facility] Dr. Pat. Pt will call for an urgent appt for evaluation. 9From 06-12-2021 visit: KIRA diagnosed years ago, with repeat PSG 07/2018 with an AHI of 12.9/hr and sp02 kriss of 76%. She was using CPAP 14-18 cm but has not been using it for several months due to the recall. She just received her new Dreamstation 2, 10 days ago and has been using that regularly. She still has not gottena nasal mask and her nasal pillows cause irritation in her nostrils. She is very frustrated by this because now she is not due for another six months. I fit her with a Airfit N20 size small today. She has residual sleepiness is likely multifactorial (stress, meds, inadequate sleep time, comorbidties). She is encouraged to use CPAP for her tota sleep time (she only sleeps 4-5 hours a night). She will continue with her methylphenidate and modafinil. She signed an updated controlled drug contract today. I will see her back in six months. I provided greater than 30 minutes in the care of this patient, more than half the time was spent in [id number] counseling. 10Outside Source Comment: Overview: Muscle spasms Auto-update: regulatory requirement 11Outside Source Comment: Overview: T7-8, T8-9 asymptomatic 12Outside Source Comment: Overview: 08/23/09 L4-5 mild bilateral lateral recess stenosis MRI 09/28, good transient response to TFESI, noinstability on plain films. Laminectomy, bilateral foraminotomy L4-5 03/09/10 ([place]) 13From 11-21-2021 visit: Doing well on trulicity, will increase dosing to 3 mg Q week. Repeat A1c in January to see trending ofvalue, reports BS have been well controlled and following diabetic diet. Procedures Procedure Date Related Diagnosis Body Site Status Surgical procedure 1 07/17/23 Comp leted Colonoscopy 04/17/23 Completed Insertion procedure 2 12/14/20 Com pleted Colonoscopy 3 06/19/20 Completed EGD - Esophagogastroduodenoscopy 4 06/19/20 Completed Port Removal procedure 12/06/19 Co mpleted Port vascular access insertion 04/05/19 Completed Hysterectomy 5 07/21/10 Completed Repair of inguinal hernia 09/04/94 Completed Tubal ligation 6 07/21/84 Complete d Carpal tunnel release 7 C ompleted section 8 Comple jose Gastric bypass Completed Procedure on back Complet ed Procedure on shoulder 9 C ompleted Reduction mammoplasty Com pleted 1Percutaneous implant neuroelectrode (InterStim) [id number] 2Rt. Chest. Power Port - Pro Fuse - Medicomp 3WNL 4unclear anatomy. 5per patient 6(1982) 7Carpal Tunnel Repair right 05/04/08, and left 8three 9x2 Social History Social History Type Response Smoking Status Smoking tobacco use: Former tobacco user;Never; Number used per day: smoked 2ppd; Number of years: 25; Total pack years: 30; Started at age: 9.0; 1 entered on: 02/08/23 Sex Female 1quit in 1994 Implantable Device List Procedure Provider Procedure Date Device Type Site [id number] Unknown 12/08/20 Unknown Chest R Device Identifier Serial Number Lot or Batch Number Manufacturing Date Expiration Date Distinct Identification Code MRI Safety Implantable Status Assigning Authority Unknown Unknown Unknown Unknown Unknown Unknown Unknown [facility] Patient Care team information Care Team Personnel Name: Quiana Tejeda MD Position: Physician Member Role: Informed Provider Address: Address: [address] Name: Tonie Leahy [employer] Position: Physician Member Role: Nurse Practitioner Address: Address: [address] [place] [address] Care Team Related Persons Name: JARROD MAYBERRY Address: [place] [id number]
--- OUTSIDE RECORDS SUMMARY | 2023-08-14 02:22 | XMS_ITS | Continuity of Care Document ---
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 Lymphadenopathy(Discharge Diagnosis) - 07/29/23 Discharge Disposition: Home or Self Care Attending Physician: Nieves Richards MD Admitting Physician: Nieves Richards MD Allergies, Adverse Reactions, Alerts Substance Reaction [...] Active Bumble Bee Sting Anaphylaxis Severe Active Dust Unknown Active Tree Pollen Unknown Active 1Outside Source Comment: Swelling 2Outside Source Comment: Headache 3Outside Source Comment: Stopped breathing Stops breathing 4Outside Source Comment: Metallic taste in mouth, ineffective 5Outside Source Comment: Mood swings 6Outside Source Comment: Throat closes 7Outside Source Comment: %22Flu%22 symptoms 8Outside Source Comment: Swelling Assessment and Plan Extracted from: Title:ED note Author:Herber Enrique MD Date:07/30/23 Patient was signed out to me by Dr. Chambers. 63-year-old female past medical history of CLL presents with abdominal pain. Imaging results and labs were back before my arrival, signout was to follow-up on further recommendations, if any, from oncology at [facility]. Spoke with oncology on-call at [facility], WBC count in their system was similar to prior, currently 140 here in the ER. Slight anemia and downtrending hemoglobin at 9.7, likely either related to her CLL or iron deficiency as she has had iron deficiency anemia in the past. There is no evidence of acute blood loss anemia on exam and history. Other labs are near patient's baseline. CT scan shows splenic infarct some splenomegaly that is stable, and given the exam that she is fairly tender in the anterior portion of the left upper quadrant, this does not seem to be consistent with pain resulting from a splenic infarct, however this cannot be completely ruled out just on the exam alone. Oncology is aware of the splenic infarcts, no acute management at this time, she will need further treatment by oncology and evaluation and she already has an appointment on August 14. There does not seem to be any acute findings on the abdominal CT. Patient clinically looks well and is in no acute distress and has stable vitals. Discharge stable condition return precautions ED. Future Appointments Future Scheduled Tests Radiology* CT Chest w/o Contrast 09/20/22 Functional Status 07/29/23 Family Member Travel History No recent t ravel Recent Travel History No recent travel Other exposure to Infectious Disease Non e Immunizations Given and Recorded Vaccine Date Status [...] A-hepatitis B vaccine 03/14/23 Recorded SARS-CoV-2 mRNA (toaustynnameran 12y+) bival 04/18/22 Recorded SARS-CoV-2 (COVID-19) mRNA-1273 [...] NEEDED, # 6.7 g, 2 Refill(s), Pharmacy: [facility], 165, cm, 04/18/23 10:10:00 EDT, Height, 107.3, kg, 06/12/23 10:34:00 EST, Weight Dosing Start Date: 06/30/23 Status: Ordered ARIPiprazole 5 mg oral tablet 1 tab, Oral, Daily, # 90 tab, 0 Refill(s), Pharmacy: [facility], 165, cm, 04/18/23 10:10:00 EDT, Height, 107.3, kg, 06/12/23 10:34:00 EST, Weight Dosing Start Date: 06/19/23 Stop Date: 09/17/23 Status: Ordered armodafinil 250 mg oral tablet 250 mg = 1 tab, Oral, Daily, # 30 tab, 5 Refill(s), Pharmacy: [facility], 165, cm, 04/18/23 10:10:00 EDT, Height, 107.3, kg, 06/12/23 10:34:00 EST, Weight Dosing Start Date: 07/04/23 Status: Ordered Aspirin Low Dose 81 mg oral delayed release tablet See Instructions, TAKE ONE TABLET BY MOUTH EVERY DAY, # 90 tab, 3 Refill(s), Pharmacy: [facility], 168, cm, 11/13/22 21:47:00 EDT, Height/Length Dosing, 124, kg, 11/13/22 21:47:00 EDT, Weight Dosing Start Date: 02/08/23 Status: Ordered atorvastatin 20 mg oral tablet 1 tab, Oral, Daily, # 90 tab, 0 Refill(s), Pharmacy: [id number], 168, cm, 11/13/22 21:47:00 EDT, Height/Length Dosing, 124, kg, 11/13/22 21:47:00 EDT, Weight Dosing Start Date: 03/07/23 Status: Ordered Botox 200 units injection IM, 200 Unknown, 1 Refill(s), 0 Refill(s) Start Date: 09/23/22 Status: Ordered busPIRone 15 mg oral tablet 15 mg = 1 tab, Oral, BID, # 180 tab, 0 Refill(s), Pharmacy: [facility], 165, cm, 04/18/2310:10:00 EDT, Height, 107.3, kg, 06/12/23 10:34:00 EST, Weight Dosing Start Date: 06/19/23 Stop Date: 09/17/23 Status: Ordered clindamycin 300 mg oral capsule 300 mg = 1 cap, Oral, BID, # 6 cap, 0 Refill(s), Pharmacy: [facility], 168, cm, 07/18/23 7:04:00 EST, Height, 103, kg, 07/18/23 7:43:00 EST, Weight Dosing Start Date: 07/18/23 Stop Date: 07/21/23 Status: Ordered clotrimazole 1% topical cream See Instructions, APPLY TOPICALLY TWO TIMES A DAY TO AFFECTED AREA NEEDED, # 15 g, 1 Refill(s), Pharmacy: [id number], 170, cm, 06/07/22 14:50:00 EST, [...] bedtime, # 90 cap, 3 Refill(s), Pharmacy: [facility],167.64, cm, 07/23/22 10:23:00 EST, Height/Length Dosing, 122.47, kg, 07/23/22 10:23:00 EST, Weight Dosing Start Date: 11/08/22 Status: Ordered DULoxetine 60 mg oral delayed release capsule 2 cap, Oral, every night at bedtime, DO NOT CRUSH. OR SWALLOW., # 180 EA, 1 Refill(s), Pharmacy: [facility], 165, cm, 04/18/23 10:10:00 EDT, Height, 106, kg, 04/18/23 10:10:00 EDT, Weight Dosing Start Date: 06/02/23 Status: Ordered EPINEPHrine 0.3 mg injectable kit See Instructions, USE DIRECTED, # 2 mL, 0 Refill(s), Pharmacy: [facility], 168, cm, 07/29/23 15:42:00 EST, Height, 103, kg, 07/29/23 15:45:00 EST, Weight Dosing Start Date: 07/29/23 Status: Ordered fluticasone 50 mcg/inh nasal spray See Instructions, SPRAY TWO SPRAYS IN EACH NOSTRIL EVERY DAY, # 16 mL, 0 Refill(s), Pharmacy: [facility], 168, cm, 07/29/23 15:42:00 EST, Height, 103, kg, 07/29/23 15:45:00 EST, Weight Dosing Start Date: 07/29/23 Status: Ordered hydrocortisone 2.5% topical cream 1 li, Topical, Daily, PRN other (see comment), Take as needed, # 30 g, 0 Refill(s), Pharmacy: [facility], 168, cm, 11/13/22 21:47:00 EDT, Height/Length Dosing, 124, kg, 11/13/22 21:47:00 EDT, Weight Dosing Start Date: 11/14/22 Status: Ordered methylphenidate 20 mg oral tablet 20 mg = 1 tab, Oral, TID, # 90 tab, 0 Refill(s), Pharmacy: [facility], 165, cm, 04/18/23 10:10:00 EDT, Height, 107.3, kg, 06/12/23 10:34:00 EST, Weight Dosing Start Date: 07/04/23 Status: Ordered Metoprolol Succinate ER 100 mg oral tablet, extended release 1 tab, Oral, Daily, # 90 tab, 0 Refill(s), Pharmacy: [facility], 165, cm, 04/18/23 10:10:00 EDT, Height, 107.3, kg, 06/12/23 10:34:00 EST, Weight Dosing Start Date: 07/02/23 Status: Ordered modafinil 200 mg oral tablet See Instructions, 1 tab Oral QAM and noon, # 60 tab, 5 Refill(s), Pharmacy: [facility], 165, cm, 04/18/23 10:10:00 EDT, Height, 106, kg, 04/18/23 10:10:00 EDT, Weight Dosing Start Date: 05/31/23 Status: Ordered montelukast 10 mg oral tablet 10 mg = 1 tab, Oral, every evening, # 90 tab, 3 Refill(s), Pharmacy: [facility], 167.64, cm, 07/23/22 10:23:00 EST, Height/Length Dosing, 122.47, kg, 07/23/22 10:23:00 EST, Weight Dosing Start Date: 09/19/22 Status: Ordered omeprazole 40 mg oral delayed release capsule See Instructions, Take 1 capsule by mouth once daily, # 90 cap, 0 Refill(s), Pharmacy: [facility], 165, cm, 04/18/23 10:10:00 EDT, Height, [...] needed, # 90 tab, 1 Refill(s), Pharmacy: [facility], 168, cm, 07/18/23 7:04:00 EST, Height, 103, kg, 07/18/23 7:43:00 EST, Weight Dosing Start Date: 07/29/23 Status: Ordered traMADol 50 mg oral tablet 50 mg = 1 tab, Oral, TID, PRN as needed for pain, # 90 tab, 0 Refill(s), Pharmacy: [facility], 165, cm, 04/18/23 10:10:00 EDT, Height, 107.3, kg, 06/12/23 10:34:00 EST, Weight Dosing Start Date: 06/12/23 Stop Date: 07/12/23 Status: Ordered traZODone 50 mg oral tablet 50 mg = 1 tab, Oral, every night at bedtime, # 90 tab, 0 Refill(s), Pharmacy: [facility],165, cm, 04/18/23 10:10:00 EDT, Height, 107.3, kg, 06/12/23 10:34:00 EST, Weight Dosing Start Date: 06/19/23 Stop Date: 09/17/23 Status: Ordered Trelegy Ellipta 200 mcg-62.5 mcg-25 mcg/inh inhalation powder 1 puffs, Inhale, Daily Start Date: 09/19/21 Status: Ordered Trulicity Pen 3 mg/0.5 mL subcutaneous solution See Instructions, INJECT 3 MG SUBCUTANEOUSLY ONCE WEEKLY, # 2 mL, 0 Refill(s), Pharmacy: [facility], 168, cm, 07/29/23 15:42:00 EST, Height, 103, kg, 07/29/23 15:45:00 EST, Weight Dosing Start Date: 07/29/23 Status: Ordered Ubrelvy 50 mg oral tablet 50 mg = 1 tab, Oral, Once, PRN as needed for migraine headache, may repeat dose in 2 hours if needed, # 10 tab, 0 Refill(s), Pharmacy: [facility], 165, cm, 04/18/23 10:10:00 EDT, Height, 107.3, kg, 06/12/23 10:34:00 EST, Weight Dosing Start Date: 06/12/23 Status: Ordered venlafaxine 150 mg oral capsule, extended release 150 mg = 1 cap, Oral, every night at bedtime, # 90 cap, 0 Refill(s), Pharmacy: [facility], 165, cm, 04/18/23 10:10:00 EDT, Height, 107.3, kg, 06/12/23 10:34:00 EST, Weight Dosing Start Date: 06/19/23 Stop Date: 09/17/23 Status: Ordered venlafaxine 37.5 mg oral capsule, extended release 37.5 mg = 1 cap, Oral, Daily, # 90 cap, 0 Refill(s), Pharmacy: [facility], 165, cm, 04/18/23 10:10:00 EDT, Height, [...] Confirmed Active Depressive disorder Confirmed 01/08/11 Active Diabetes mellitus Confirmed 03/13/16 Active Diarrhea [...] Source Comment: Overview: Flow cytometry done at [facility] dated 08/11/2018 CD5 positive monoclonal lymphoproliferative disorder. [...] drawing. 3. She is to follow-up with [facility] in May for her leukemia, COPD, and [...] 7Outside Source Comment: Overview: H/o Gastric Bypass. EGD/[place] ordered January 2020 - pending to date. IV iron per Dr Kearney in [place]. 8From 09-20-2021 visit: Pt followed previously with [facility], last seen in 05/2021. WBC showing critically elevated levels at >41. Pt aware of labs, which have also been faxed over to [facility] Dr. Pat. Pt will call for an urgent appt for evaluation. 9From 06-12-2021 visit: KIRA diagnosed years ago, with repeat PSG 07/2018 with an AHI of 12.9/hr and sp02 krsis of 76%. She was using CPAP 14-18 [...] than half the time was spent in hhdd-is-jvso counseling. 10Outside Source Comment: Overview: Muscle spasms Auto-update: regulatory requirement 11Outside Source Comment: Overview: T7-8, T8-9 asymptomatic 12Outside Source Comment: Overview: 08/23/09 L4-5 mild bilateral lateral recess stenosis MRI 09/28, good transient response to TFESI, noinstability on plain films. Laminectomy, bilateral foraminotomy L4-5 03/09/10 ([place]) 13From 11-21-2021 visit: Doing well on trulicity, will increase dosing to 3 mg Q week. Repeat A1c in January to see trending ofvalue, reports BS have been well controlled and following diabetic diet. Procedures Procedure Date Related Diagnosis Body Site Status Colonoscopy 04/17/23 Completed Insertion procedure 1 12/14/20 Com pleted Colonoscopy 2 06/19/20 Completed EGD - Esophagogastroduodenoscopy 3 06/19/20 Completed Port Removal procedure 12/06/19 Co mpleted Port vascular access insertion 04/05/19 Completed Hysterectomy 4 07/21/10 Completed Repair of inguinal hernia 09/04/94 Completed Tubal ligation 5 07/21/84 Complete d Carpal tunnel release 6 C ompleted section 7 Comple jose Gastric bypass Completed Procedure on back Complet ed Procedure on shoulder 8 C ompleted Reduction mammoplasty Com pleted 1Rt. Chest. Power Port - Pro Fuse - Medicomp 2WNL 3unclear anatomy. 4per patient 5(1982) 6Carpal Tunnel Repair right 05/04/08, and left 7three 8x2 Results Laboratory List Name Date Lactate Dehydrogenase (LDH) 07/29/23 CBC w/ Diff 07/29/23 Comprehensive Metabolic Panel 07/29/23 .Manual Differential ([facility]) 07/29/23 Most recent to oldest [Reference Range]: 1 WBC [5.0-10.0 x10^3/mcL] 140.6 x10^3/mcL 1 *CRIT* (07/29/23 4:18 PM) RBC [4.1-5.3 x10^6/mcL] 3.1 x10^6/mcL *LOW* (07/29/23 4:18 PM) Segs Man [40-75 %] 2 % *LOW* (07/29/23 4:18 PM) Lymph Man [20-50 %] 95 % *HI* (07/29/23 4:18 PM) Colbert Man [2-15 %] 2 % (07/29/23 4:18 PM) Eos Man [1-6 %] 0 % *LOW* (07/29/23 4:18 PM) BUN [7-18 mg/dL] 14 mg/dL (07/29/23 4:18 PM) Glucose Level [74-106 mg/dL] 93 mg/dL (07/29/23 4:18 PM) Potassium Level [3.5-5.1 mmol/L] 4.1 mmo l/L (07/29/23 4:18 PM) MCV [80.0-96.0 fL] 102.6 fL *HI* (07/29/23 4:18 PM) RBC Morph Normal (07/29/23 4:18 PM) AST [15-37 unit/L] 22 unit/L (07/29/23 4:18 PM) ALT [14-59 unit/L] 14 unit/L (07/29/23 4:18 PM) MCHC [31.0-35.0 g/dL] 30.8 g/dL *LOW* (07/29/23 4:18 PM) Sodium Level [136-145 mmol/L] 144 mmol/L (07/29/23 4:18 PM) Hct [37.0-47.0 %] 31.5 % *LOW* (07/29/23 4:18 PM) Calcium Level [8.5-10.1 mg/dL] 8.6 mg/dL (07/29/23 4:18 PM) Albumin Level [3.4-5.0 g/dL] 3.2 g/dL *LOW* (07/29/23 4:18 PM) Protein Total [6.4-8.2 g/dL] 6.6 g/dL (07/29/23 4:18 PM) MCH [26.0-32.0 pg] 31.6 pg (07/29/23 4:18 PM) Bilirubin Total [0.2-1.0 mg/dL] 0.4 mg/d L (07/29/23 4:18 PM) Hgb [12.0-16.0 g/dL] 9.7 g/dL *LOW* (07/29/23 4:18 PM) Alk Phos [46-146 unit/L] 165 unit/L *HI* (07/29/23 4:18 PM) LDH [81-234 unit/L] 233 unit/L (07/29/23 4:23 PM) Band Man [0-5 %] 0 % (07/29/23 4:18 PM) Platelets [130-450 x10^3/mcL] 156 x10^3/ mcL (07/29/23 4:18 PM) CO2 [21-32 mmol/L] 25 mmol/L (07/29/23 4:18 PM) eGFR Non-AA [>=60] 61 (07/29/23 4:18 PM) eGFR AA [>=60] 61 (07/29/23 4:18 PM) Chloride Level [98-107 mmol/L] 109 mmol/ L *HI* (07/29/23 4:18 PM) RDW-CV [11.5-14.5 %] 15.9 % *HI* (07/29/23 4:18 PM) Smudge Cells Rare (07/29/23 4:18 PM) Slide Review Man Diff (07/29/23 4:18 PM) Abs Neut Man 2.8 x10^3/mcL *NA* (07/29/23 4:18 PM) Creatinine Level [0.55-1.02 mg/dL] 1.03 mg/dL *HI* (07/29/23 4:18 PM) Baso Man [0-1 %] 1 % (07/29/23 4:18 PM) 1Result Comment: Called to and verbally verified by Catina Hua at 07/29/2023 16:33:53 EST. Vital Signs Most recent to oldest [Reference Range]: 1 2 3 Temperature Temporal Artery [36-38 Deg C] 36 Deg C (07/29/23 8:12 PM) 35.3 Deg C *LOW* (07/29/23 7:00 PM) 35.1 Deg C *LOW* (07/29/23 3:39 PM) Peripheral Pulse Rate [60-100 bpm] 82 bpm (07/29/23 8:12 PM) 86 bpm (07/29/23 7:36 PM) 87 bpm (07/29/23 7:00 PM) Respiratory Rate [12-24 br/min] 20 br/min (07/29/23 7:00 PM) 18 br/min (07/29/23 3:39 PM) Blood Pressure [90-140/60-90 mmHg] 109/36mmHg (07/29/23 8:12 PM) 105/46mmHg (07/29/23 7:00 PM) 111/56mmHg (07/29/23 6:30 PM) Mean Arterial Pressure, Cuff [70-110 mmHg] 66 mmHg *LOW* (07/29/23 7:00 PM) 74 mmHg (07/29/23 6:30 PM) 63 mmHg *LOW* (07/29/23 5:50 PM) Blood Pressure Location Left arm (07/29/23 4:43 PM) Weight 103 kg (07/29/23 3:39 PM) Weight Dosing 103.000 kg (07/29/23 3:39 PM) Height 168 cm (07/29/23 3:39 PM) Body Mass Index 36.49 kg/m2 (07/29/23 3:39 PM) Social History Social History Type Response Smoking Status Smoking tobacco use: Former tobacco user;Never; Number used per day: smoked 2ppd; Number of years: 25; Total pack years: 30; Started [age] age: 9.0; 1 entered on: 02/08/23 Sex Female 1quit in 1994 Implantable Device List Procedure Provider Procedure Date Device Type Site [id number] Unknown 12/08/20 Unknown Chest R Device Identifier Serial Number Lot or Batch Number Manufacturing Date Expiration Date Distinct Identification Code MRI Safety Implantable Status Assigning Authority Unknown Unknown Unknown Unknown Unknown Unknown Unknown Active [facility] Discharge Instructions Patient Education 07/29/2023 19:37:57 Abdominal Pain, Adult Abdominal Pain, Adult Pain in the abdomen (abdominal pain) can be caused by many things. Often, abdominal pain is not serious and it gets better with no treatment or by being treated at home. However, sometimes abdominal pain is serious. Your health care provider will ask questions about your medical history and do a physical exam to try to determine the cause of your abdominal pain. Follow these instructions at home: Medicines ??? Take vkrs-dpp-gyepkpa and prescription medicines only as told by your health care provider. ??? Do not take a laxative unless told by your health care provider. General instructions ??? Watch your condition for any changes. ??? Drink enough fluid to keep your urine pale yellow. ??? Keep all follow-up visits as told by your health care provider. This is important. Contact a health care provider if: ??? Your abdominal pain changes or gets worse. ??? You are not hungry or you lose weight without trying. ??? You are constipated or have diarrhea for more than 2???3 days. ??? You have pain when you urinate or have a bowel movement. ??? Your abdominal pain wakes you up at night. ??? Your pain gets worse with meals, after eating, or with certain foods. ??? You are vomiting and cannot keep anything down. ??? You have a fever. ??? You have blood in your urine. Get help right away if: ??? Your pain does not go away as soon as your health care provider told you to expect. ??? You cannot stop vomiting. ??? Your pain is only in areas of the abdomen, such as the right side or the left lower portion of the abdomen. Pain on the right side could be caused by appendicitis. ??? You have bloody or black stools, or stools that look like tar. ??? You have severe pain, cramping, or bloating in your abdomen. ??? You have signs of dehydration, such as: ??? Dark urine, very little urine, or no urine. ??? Cracked lips. ??? Dry mouth. ??? Sunken eyes. ??? Sleepiness. ??? Weakness. ??? You have trouble breathing or chest pain. Summary ??? Often, abdominal pain is not serious and it gets better with no treatment or by being treated at home. However, sometimes abdominal pain is serious. ??? Watch your condition for any changes. ??? Take rrqa-egm-uthdbhz and prescription medicines only as told by your health care provider. ??? Contact a health care provider if your abdominal pain changes or gets worse. ??? Get help right away if you have severe pain, cramping, or bloating in your abdomen. This information is not intended to replace advice given to you by your health care provider. Make sure you discuss any questions you have with your health care provider. Document Revised: 08/26/2020 Document Reviewed: 11/16/2019 [employer] Patient Education ?? 2022 [employer]. Follow Up Care 07/29/2023 15:39:44 With:Quiana Tejeda MD Address: [place] [address]- When:1 to 2 weeks Physician Emergency department Note * Herber Enrique MD: PERFORM Event Display: ED Note Physician Authored Date: [id number] Patient was signed out to me by Dr. Chambers. 63-year-old female past medical history of CLL presents with abdominal pain. Imaging results and labs were back before my arrival, signout was to follow-up on further recommendations, if any, from oncology at [facility]. Spoke with oncology on-call at [facility], WBC count in their system was similar to prior, currently 140 here in the ER. Slight anemi a and downtrending hemoglobin at 9.7, likely either related to her CLL or iron deficiency as she has had iron deficiency anemia in the past. There is no evidence of acute blood loss anemia on exam and history. Other labs are near patient's baseline. CT scan shows splenic infarct some splenomegaly that is stable, and given the exam that she is fairly tender in the anterior portion of the left upper quadrant, this does not seem to be consistent with pain resulting from a splenic infarct, however this cannot be completely ruled out just on the exam alone. Oncology is aware of the splenic infarcts, no acute management at this time, she will need further treatment by oncology and evaluation and she already has an appointment on August 14. There does not seem to be any acute findings on the abdominal CT. Patient clinically looks well and is in no acute distress and has stable vitals. Discharge stable condition return precautions ED. Electronically Signed on 07/30/23 03:29 AM Herber Enrique MD * Nieves Richards MD: PERFORM Event Display: ED Note Physician Authored Date: [id number] DESTINY MAYBERRY :1960 Age:63 years Sex:Female Visit Date:07/29/2023 Primary Care Physician: Quiana Tejeda MD Basic Information Time Seen: Nieves Richards MD / 07/29/2023 15:50 Chief Complaint I have abdominal pain, I have leukemia and i'm due for chemo on aug 14. They are worried about my spleen right now and they want lab work done. PT denies vomiting. Pt pale on arrival History Of Present Illness: Left upper quadrant abdominal pain patient reports that she has had decreased appetite she was??barely able to eat half a hamburger on Saturday night.?? No known fever she usually has low temperatures??so today's low temperature is not unusual for her??she is often 95 or 96 when checked.?? No ear nose or throat pain. ??Patient does states she recently had bronchitis twice.?? No chest pain. ??Occasional cough but improving from the bronchitis.?? No vomiting??no new bowel changes??patient does havea stimulator device to help with diarrhea??no new urinary symptoms no extremity edema no skin rashes Review of Systems: see hpi for ros Physical Exam Vitals & Measurements T:??35.3?C ??(Temporal Artery)?? HR:??87??(Peripheral)?? RR:??20?? BP:??105/46?? SpO2:??97%?? HT:??168??cm?? WT:??103??kg?? BMI:??36.49?? Pain Score:??7?? O2 Therapy:??Room air?? General: Alert and oriented, well nourished,?No??acute distress Eye: PER?Normal??conjunctiva,??No??scleral icterus HENT: Normocephalic,??nontraumatic??Normal hearing, no significant erythema posterior pharynx??no nasal discharge Neck: Supple, non-tender,?No??JVD,?No??lymphadenopathy Lungs: Clear to auscultation,?Non-labored?? respiration Heart:?Normal?? rate,?Regular??rhythm,?No??murmur,?No??gallop,?No??edema Chest: wall excursion wnl no abnormal movements no obvious deformities Abdomen: Soft, moderate tenderness left upper quadrant no rebound, non- distended,?Normal?? bowelsounds,?No??masses Musculoskeletal:?Normal?? range of motion and strength,?No??tenderness,?No??swelling Skin: Skin is warm, dry and pink,?No??rashes,?No??lesions Neurologic: Awake, alert and oriented X4 Psychiatric: Cooperative, appropriate mood and affect Medical Decision Making: For MDM please see under assessment and plan Procedure No Qualifying Data Assessment/Plan 1.??Chronic lymphoid leukemia??C91.10 Patient with a white count of 140.6??phone call into oncology??of [facility] as they follow her for??her chronic lymphoid leukemia. ??Also??considered a CBC CMP??and LDH??as an outpatient this was ordered and??resulted here??today had??thoughts??perhaps of doing an ultrasound to look at her spleen??the CT was able to look at her spleen here. ??Will discuss with them the results prior to discharge??when they feel patient is able to be discharged??we will discharge with follow-up with oncology at [facility]. 2.??Abdominal pain??R10.9 Reassurance is given to the patient given CT scan. Medication Reconciliation Changed dulaglutide (Trulicity Pen 3 mg/0.5 mL subcutaneous solution)INJECT 3 MG SUBCUTANEOUSLY ONCE WEEKLY. Refills: 0. ?? fluticasone nasal (fluticasone 50 mcg/inh nasal spray)SPRAY TWO SPRAYS IN EACH NOSTRIL EVERY DAY. Refills: 0. ?? Unchanged albuterol (Albuterol (Eqv-Proventil HFA) 90 mcg/inh inhalation aerosol)2 Puffs Inhale (breathe in) every 6 hours as needed. Refills: 2. ?? ARIPiprazole (ARIPiprazole 5 mg oral tablet)1 tab Oral (given by mouth) every day for 90 Days. Refills: 0. ?? armodafinil (armodafinil 250 mg oral tablet)1 tab Oral (given by mouth) every day. Refills: 5. ?? aspirin (Aspirin Low Dose 81 mg oral delayed release tablet)TAKE ONE TABLET BY MOUTH EVERY DAY. Refills: 3. ?? atorvastatin (atorvastatin 20 mg oral tablet)1 tab Oral (given by mouth) every day. Refills: 0. ?? busPIRone (busPIRone 15 mg oral tablet)1 tab Oral (given by mouth) 2 times a day for 90 Days. Refills: 0. ?? clindamycin (clindamycin 300 mg oral capsule)1 Capsules Oral (given by mouth) 2 times a day for 3 Days. Refills: 0. ?? clotrimazole topical (clotrimazole 1% topical cream)APPLY TOPICALLY TWO TIMES A DAY TO AFFECTED AREA NEEDED. Refills: 1. ?? DME RESP CPAP (CPAP supplies)please dispense all CPAP supplies as needed, she is using a Dreamstation 2 and she needs a new full face mask (interested in trying a Resmed Airfit F30i or similar). Please contact her to schedule supply delivery. Reliable. Refills: 0. ?? doxepin (doxepin 25 mg oral capsule)1 Capsules Oral (given by mouth) every night at bedtime. Refills: 3. ?? DULoxetine (DULoxetine 60 mg oral delayed release capsule)2 Capsules Oral (given by mouth) every night at bedtime. DO NOT CRUSH. OR SWALLOW.. Refills: 1. ?? EPINEPHrine (EPINEPHrine 0.3 mg injectable kit)USE DIRECTED. Refills: 0. ?? fluticasone/umeclidinium/vilanterol (Trelegy Ellipta 200 mcg-62.5 mcg-25 mcg/inh inhalation powder)1 Puffs Inhale (breathe in) every day. ?? hydrocortisone topical (hydrocortisone 2.5% topical cream)1 Application Topical (on the skin) everyday as needed other (see comment). Take as needed. Refills: 0. ?? methylphenidate (methylphenidate 20 mg oral tablet)1 tab Oral (given by mouth) 3 times a day. Refills: 0. ?? metoprolol (Metoprolol Succinate ER 100 mg oral tablet, extended release)1 tab Oral (given by mouth) every day. Refills: 0. ?? modafinil (modafinil 200 mg oral tablet)1 tab Oral QAM and noon. Refills: 5. ?? montelukast (montelukast 10 mg oral tablet)1 tab Oral (given by mouth) every evening. Refills: 3. ?? omeprazole (omeprazole 40 mg oral delayed release capsule)Take 1 capsule by mouth once daily. Refills: 0. ?? onabotulinumtoxinA (Botox 200 units injection)Intramuscular (in a muscle). 200 Unknown, 1 Refill(s). ?? Other Prescription (ONE TOUCH DELICA PLUS 33G LANCETS) ?? Other Prescription (ONETOUCH ULTRA 2 KIT) ?? rOPINIRole (rOPINIRole 1 mg oral tablet)1 tab Oral (given by mouth) 3 times a day as needed. Refills: 1. ?? traMADol (traMADol 50 mg oral tablet)1 tab Oral (given by mouth) 3 times a day as needed as needed for pain for 30 Days. Refills: 0. ?? traZODone (traZODone 50 mg oral tablet)1 tab Oral (given by mouth) every night at bedtime for 90 Days. Refills: 0. ?? ubrogepant (Ubrelvy 50 mg oral tablet)1 tab Oral (given by mouth) once as needed as needed for migraine headache. may repeat dose in 2 hours if needed. Refills: 0. ?? venlafaxine (venlafaxine 150 mg oral capsule, extended release)1 Capsules Oral (given by mouth) every night at bedtime for 90 Days. Refills: 0. ?? venlafaxine (venlafaxine 37.5 mg oral capsule, extended release)1 Capsules Oral (given by mouth) every day for 90 Days. Refills: 0. 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 Chronic obstructive lung disease Chronic pain Depressive disorder Depressive disorder Diabetes mellitus Diarrhea Essential hypertension Excessive daytime sleepiness - normal night sleep Fecal incontinence Fibromyalgia Fibromyositis Gastric fistula Hyperlipidemia Hypersomnia Hypertensive disorder Hyperthyroidism Idiopathic osteoarthritis Insomnia Intertrigo Iron deficiency anemia secondary to inadequate dietary iron intake Joint pain Long-term drug therapy Low back pain Lumbosacral radiculopathy Lymphedema praecox Lymphoid leukemia Major depressive disorder Medication overuse headache Migraine without aura Mixed hyperlipidemia Morbid obesity Myositis Narcolepsy Neuropathy Obstructive sleep apnea syndrome Osteoarthritis Pain in bilateral legs Pain in right knee Parasomnia Periodic limb movement disorder Physical activity finding Posttraumatic stress disorder Prolapsed thoracic intervertebral disc Restless legs Sciatica Secondary peripheral neuropathy Severe obesity Spinal stenosis of lumbar region Spinal stenosis of lumbar region Tachycardia Tendinitis Thyroid hormone tests outside reference range Thyrotoxicosis Toxic effect of venom Transient memory loss Trochanteric bursitis of right hip Type 2 diabetes mellitus without complication Vitamin B12 deficiency anemia due to dietary causes Historical H/O: psychiatric disorder Procedure/Surgical History ???Colonoscopy (04/18/2023)???Insertion procedure (12/15/2020)???Colonoscopy (06/20/2020)???EGD - Esophagogastroduodenoscopy (06/20/2020)???Port Removal procedure (12/07/2019)???Port vascular access insertion (04/06/2019)???Hysterectomy (07/22/2010)???Repair of inguinal hernia (09/05/1994)???Tubal ligation (07/22/1984)???Carpal tunnel release??? section???Gastric bypass???Procedure on back???Procedure on shoulder???Reduction mammoplasty Medication Administration Given 0.9% NaCl bolus, 1000 mL, Medication Bolus Allergies Bee Stings??(Unknown) Bumble Bee Sting??(Anaphylaxis) Latex??(Swelling, Itching) cephalexin??(Anaphylaxis) macrolide antibiotics??(Anaphylaxis) zaleplon??(Dyspnea) lamoTRIgine??(Urticaria) Ambien Axert??(Muscle pain) BEE POLLEN??(Anaphylactic reaction) Dust Grass SUMAtriptan??(Unknown) Tree Pollen Wellbutrin??(Unknown) ZOLMitriptan??(Unknown) aspirin-dipyridamole??(Unknown) buPROPion??(Unknown) erythromycin??(Anaphylactic reaction) eszopiclone??(Unknown) ibuprofen??(Nausea) mixed grass pollens allergen extract??(Unknown) pregabalin??(Unknown) rizatriptan??(Unknown) sulfa drugs??(Unknown) sulfacetamide sodium ophthalmic??(Unknown) zolpidem??(Other) Social History Alcohol Current, 1-2 times per year Electronic Cigarette/Vaping Electronic Cigarette Use: Never. Nutrition/Health Caffeine intake amount: 2 cups coffee daily. Sleeping concerns: Yes.- Comments: Pt reports difficulty falling and staying asleep. pt. reports difficulty with staying asleep-she reports she is no longer on the Trazodone written by her PCP. Other Psychosocial Substance Use CBD gummies Tobacco Former tobacco user Tobacco Use:. smoked 2ppd per day. 25 year(s). Total pack years: 30. Started age 9.0 Years. Never Smokeless Tobacco use:.- Comments: quit in 1994 Family History Diabetes mellitus: Mother. Hypertensive disorder: Mother. Malignant tumor: Father. Lab Results CBC and Differential?? LATEST RESULTS?? HISTORICAL RESULTS?? WBC?? 07/29/23 16:18?? 140.6 ??Critical?? 01/30/23?? 87.3 ??Critical?? RBC?? 07/29/23 16:18?? 3.1 ??Low?? 01/30/23?? 4.0 ??Low?? Hgb?? 07/29/23 16:18?? 9.7 ??Low?? 01/30/23?? 12.2?? Hct?? 07/29/23 16:18?? 31.5 ??Low?? 01/30/23?? 39.4?? MCV?? 07/29/23 16:18?? 102.6 ??High?? 01/30/23?? 98.3 ??High?? MCH?? 07/29/23 16:18?? 31.6?? 01/30/23?? 30.4?? MCHC?? 07/29/23 16:18?? 30.8 ??Low?? 01/30/23?? 31.0?? RDW-CV?? 07/29/23 16:18?? 15.9 ??High?? 01/30/23?? 14.5?? Platelets?? 07/29/23 16:18?? 156?? 01/30/23?? 188?? Segs Man?? 07/29/23 16:18?? 2 ??Low?? 01/30/23?? 10 ??Low?? Lymph Man?? 07/29/23 16:18?? 95 ??High?? 01/30/23?? 84 ??High?? Colbert Man?? 07/29/23 16:18?? 2?? 01/30/23?? 5?? Eos Man?? 07/29/23 16:18?? 0 ??Low?? 01/30/23?? 0 ??Low?? Baso Man?? 07/29/23 16:18?? 1?? 01/30/23?? 1?? Band Man?? 07/29/23 16:18?? 0?? 01/30/23?? 0?? Abs Neut Man?? 07/29/23 16:18?? 2.8?? 01/30/23?? 8.7?? Smudge Cells?? 07/29/23 16:18?? Rare?? 01/30/23?? Moderate?? RBC Morph?? 07/29/23 16:18?? Normal?? 01/30/23?? Normal?? Slide Review?? 07/29/23 16:18?? Man Diff?? 01/30/23?? Man Diff? Routine Chemistry?? LATEST RESULTS?? HISTORICAL RESULTS?? Sodium Level?? 07/29/23 16:18?? 144?? 07/04/23?? 143?? Potassium Level?? 07/29/23 16:18?? 4.1?? 07/04/23?? 3.8?? Chloride Level?? 07/29/23 16:18?? 109 ??High?? 07/04/23?? 107?? CO2?? 07/29/23 16:18?? 25?? 07/04/23?? 29?? Alk Phos?? 07/29/23 16:18?? 165 ??High?? 07/04/23?? 202 ??High?? AST?? 07/29/23 16:18?? 22?? 07/04/23?? 17?? ALT?? 07/29/23 16:18?? 14?? 07/04/23?? 12 ??Low?? BUN?? 07/29/23 16:18?? 14?? 07/04/23?? 13?? Glucose Level?? 07/29/23 16:18?? 93?? 07/04/23?? 130 ??High?? Creatinine Level?? 07/29/23 16:18?? 1.03 ??High?? 07/04/23?? 0.92?? eGFR AA?? 07/29/23 16:18?? 61?? 07/04/23?? 70?? eGFR Non-AA?? 07/29/23 16:18?? 61?? 07/04/23?? 70?? Calcium Level?? 07/29/23 16:18?? 8.6?? 07/04/23?? 8.6?? Protein Total?? 07/29/23 16:18?? 6.6?? 07/04/23?? 6.6?? Albumin Level?? 07/29/23 16:18?? 3.2 ??Low?? 07/04/23?? 3.1 ??Low?? Bilirubin Total?? 07/29/23 16:18?? 0.4?? 07/04/23?? 0.3?? LDH?? 07/29/23 16:23?? 233?? 01/30/23?? 261 ??High? Electronically Signed on 07/29/23 07:10 PM Nieves Richards MD Emergency department Discharge instructions * Herber Enrique MD: PERFORM Event Display: ED Discharge Information Authored Date: [id number] DESTINY MAYBERRY :1960 Age:63 years Sex:Female Visit Date:07/29/2023 Primary Care Physician: Quiana Tejeda MD Discharge Instructions We would like to thank you for allowing us to assist you with your healthcare needs. The following includes patient education materials and information regarding your injury/illness. Diagnosis from Today's Visit Chronic lymphoid leukemia Abdominal pain Leukocytosis Anemia Splenic infarct Lymphadenopathy Discharge Vitals Temperature??(Temporal Artery) 96.8 ??F (36 ??C) Heart Rate??(Peripheral) 82 Respiratory Rate?? 20 Blood Pressure?? 109/36?? Height?? 66.14 in (168 cm) Weight?? 227.12 lb (103 kg) BMI?? 36.49 Allergies Bee Stings??(Unknown) Bumble Bee Sting??(Anaphylaxis) Latex??(Swelling, Itching) cephalexin??(Anaphylaxis) macrolide antibiotics??(Anaphylaxis) zaleplon??(Dyspnea) lamoTRIgine??(Urticaria) Ambien Axert??(Muscle pain) BEE POLLEN??(Anaphylactic reaction) Dust Grass SUMAtriptan??(Unknown) Tree Pollen Wellbutrin??(Unknown) ZOLMitriptan??(Unknown) aspirin-dipyridamole??(Unknown) buPROPion??(Unknown) erythromycin??(Anaphylactic reaction) eszopiclone??(Unknown) ibuprofen??(Nausea) mixed grass pollens allergen extract??(Unknown) pregabalin??(Unknown) rizatriptan??(Unknown) sulfa drugs??(Unknown) sulfacetamide sodium ophthalmic??(Unknown) zolpidem??(Other) What to Do Next Instructions from Your Care Team You were seen in the emergency department today for abdominal pain. 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 We spoke with the oncology team at [facility],??at this time you can follow-up as an outpatient on August 14 at your already scheduled appointment. ??They may be ordering??a splenic??ultrasound to further evaluate the spleen. ??In the meantime,??the reason for your abdominal pain??is not entirely clear, however given??no other acute findings on the CT,??it seems that you are okay to go home at this time. ??Please come back to the ER if you have any worsening symptoms.?? Follow-up closely with your oncologist. ??He can also check back in with primary care in 1 to 2 weeks??for reevaluation??and ensure your symptoms are improving. You Need to Schedule the Following Appointments Follow Up with??Quiana Tejeda MD When:??Within 1 to 2 weeks Where: [place] [address]- Upcoming Scheduled Appointments Saturday 1:30 PM EST ?? With: Neymar Dunn MD Where: [facility] [address] [place] [address] Status: Confirmed 2023 2:30 PM EST ?? Where: [facility] [address] [place] [address] Status: Confirmed Saturday 2:45 PM EST ?? With: Antonio [facility] D[facility] Where: [facility] [address] [place] [address] Status: Confirmed Saturday 9:30 AM EST ?? With: Tonie Leahy DRAMA DIRECTOR Where: [facility] [address] [place] [address] Status: Confirmed Saturday 2:00 PM EST ?? With: Quiana Tejeda MD Where: [facility] [address] [address] Status: Confirmed Saturday. 2023 2:20 PM EDT ?? With: Quiana Tejeda MD Where: [address] [address] Status: Confirmed You were treated today on an emergency basis; it may be levy to contact your primary care provider to notify them of your visit today. You may have been referred to your regular doctor or a specialist, please follow up as instructed. If your condition worsens or you can't get in to see the doctor, contact the Emergency Department. Medications What How Much When Why Instructions Next Dose Changed dulaglutide (Trulicity Pen 3 mg/ 0.5 mL subcutaneous solution) See instructions INJECT 3 MG SUBCUTANEOUSLY ONCE WEEKLY ?? Changed fluticasone nasal (fluticasone 50 mcg/ inh nasal spray) See instructions SPRAY TWO SPRAYS IN EACH NOSTRIL EVERY DAY ?? Unchanged albuterol (Albuterol (Eqv-Proventil HFA) 90 mcg/ inh inhalation aerosol) 2 Puffs Inhale (breathe in) Every 6 hours as needed for NEEDED Unchanged ARIPiprazole (ARIPiprazole 5 mg oral tablet) 1 tab Oral (given by mouth) Every day Duration: 90 Days Unchanged armodafinil (armodafinil 250 mg oral tablet) 1 tab Oral (given by mouth) Every day Unchanged aspirin (Aspirin Low Dose 81 mg oral delayed release tablet) See instructions TAKE ONE TABLET BY MOUTH EVERY DAY ?? Unchanged atorvastatin (atorvastatin 20 mg oral tablet) 1 tab Oral (given by mouth) Every day Unchanged busPIRone (busPIRone 15 mg oral tablet) 1 tab Oral (given by mouth) 2 times a day Duration: 90 Days Unchanged clindamycin (clindamycin 300 mg oral capsule) 1 Capsules Oral (given by mouth) 2 times a day Duration: 3 Days Unchanged clotrimazole topical (clotrimazole 1% topical cream) See instructions APPLY TOPICALLY TWO TIMES A DAY TO AFFECTED AREA NEEDED ?? Unchanged DME RESP CPAP (CPAP supplies) See instructions Cataplexy and narcolepsy Obstructive sleep apnea syndrome please dispense all CPAP supplies as needed, she is using a Dreamstation 2 and she needs a new fullface mask (interested in trying a Resmed Airfit F30i or similar). ??Please contact her to schedule supply delivery. Reliable ?? Unchanged doxepin (doxepin 25 mg oral capsule) 1 Capsules Oral (given by mouth) Every night at bedtime Unchanged DULoxetine (DULoxetine 60 mg oral delayed release capsule) 2 Capsules Oral (given by mouth) Every night at bedtime DO ??NOT ??CRUSH. OR ??SWALLOW. ?? Unchanged EPINEPHrine (EPINEPHrine 0.3 mg injectable kit) See instructions USE DIRECTED ?? Unchanged fluticasone/ umeclidinium/ vilanterol (Trelegy Ellipta 200 mcg-62.5 mcg-25 mcg/ inh inhalation powder) 1 Puffs Inhale (breathe in) Every day Unchanged hydrocortisone topical (hydrocortisone 2.5% topical cream) 1 Application Topical (on the skin) Every day as needed for other (see comment) Intertrigo Take as needed ?? Unchanged methylphenidate (methylphenidate 20 mg oral tablet) 1 tab Oral (given by mouth) 3 times a day Unchanged metoprolol (Metoprolol Succinate ER 100 mg oral tablet, extended release) 1 tab Oral (given by mouth) Every day Unchanged modafinil (modafinil 200 mg oral tablet) See instructions 1 tab Oral QAM and noon ?? Unchanged montelukast (montelukast 10 mg oral tablet) 1 tab Oral (given by mouth) Every evening Unchanged omeprazole (omeprazole 40 mg oral delayed release capsule) See instructions Take 1 capsule by mouth once daily ?? Unchanged onabotulinumtoxinA (Botox 200 units injection) Intramuscular (in a muscle) 200 Unknown, 1 Refill(s) ?? Unchanged Other Prescription (ONE TOUCH DELICA PLUS 33G LANCETS) Unchanged Other Prescription (ONETOUCH ULTRA 2 KIT) Unchanged rOPINIRole (rOPINIRole 1 mg oral tablet) 1 tab Oral (given by mouth) 3 times a day as needed for as needed Unchanged traMADol (traMADol 50 mg oral tablet) 1 tab Oral (given by mouth) 3 times a day as needed for as needed for pain Duration: 30 Days Unchanged traZODone (traZODone 50 mg oral tablet) 1 tab Oral (given by mouth) Every night at bedtime Duration: 90 Days Unchanged ubrogepant (Ubrelvy 50 mg oral tablet) 1 tab Oral (given by mouth) Once as needed for as needed for migraine headache may repeat dose in 2 hours if needed ?? Unchanged venlafaxine (venlafaxine 150 mg oral capsule, extended release) 1 Capsules Oral (given by mouth) Every night at bedtime Depressive disorder Duration: 90 Days Unchanged venlafaxine (venlafaxine 37.5 mg oral capsule, extended release) 1 Capsules Oral (given by mouth) Every day Depressive disorder Duration: 90 Days Education Materials Abdominal Pain, Adult Pain in the abdomen (abdominal pain) can be caused by many things. Often, abdominal pain is not serious and it gets better with no treatment or by being treated at home. However, sometimes abdominal pain is serious. Your health care provider will ask questions about your medical history and do a physical exam to try to determine the cause of your abdominal pain. Follow these instructions at home: Medicines ? Take [id number] and prescription medicines only as told by your health care provider. ? Do not take a laxative unless told by your health care provider. General instructions ? Watch your condition for any changes. ? Drink enough fluid to keep your urine pale yellow. ? Keep all follow-up visits as told by your health care provider. This is important. Contact a health care provider if: ? Your abdominal pain changes or gets worse. ? You are not hungry or you lose weight without trying. ? You are constipated or have diarrhea for more than 2???3 days. ? You have pain when you urinate or have a bowel movement. ? Your abdominal pain wakes you up at night. ? Your pain gets worse with meals, after eating, or with certain foods. ? You are vomiting and cannot keep anything down. ? You have a fever. ? You have blood in your urine. Get help right away if: ? Your pain does not go away as soon as your health care provider told you to expect. ? You cannot stop vomiting. ? Your pain is only in areas of the abdomen, such as the right side or the left lower portion of the abdomen. Pain on the right side could be caused by appendicitis. ? You have bloody or black stools, or stools that look like tar. ? You have severe pain, cramping, or bloating in your abdomen. ? You have signs of dehydration, such as: ? Dark urine, very little urine, or no urine. ? Cracked lips. ? Dry mouth. ? Sunken eyes. ? Sleepiness. ? Weakness. ? You have trouble breathing or chest pain. Summary ? Often, abdominal pain is not serious and it gets better with no treatment or by being treated at home. However, sometimes abdominal pain is serious. ? Watch your condition for any changes. ? Take wzpa-rhs-gtdjrgm and prescription medicines only as told by your health care provider. ? Contact a health care provider if your abdominal pain changes or gets worse. ? Get help right away if you have severe pain, cramping, or bloating in your abdomen. This information is not intended to replace advice given to you by your health care provider. Make sure you discuss any questions you have with your health care provider. Document Revised: 08/26/2020 Document Reviewed: 11/16/2019 [employer] Patient Education ?? 2022 [employer] Tests Performed Medications and Immunizations Administered Given 0.9% NaCl bolus, 1000 mL, Medication Bolus Toradol, 15 mg, IV Push Lab Test Name Test Result Date/Time WBC 140.6 x10^3/mcL 07/29/2023 16:18 EST RBC 3.1 x10^6/mcL 07/29/2023 16:18 EST Hgb 9.7 g/dL 07/29/2023 16:18 EST Hct 31.5 % 07/29/2023 16:18 EST MCV 102.6 fL 07/29/2023 16:18 EST MCH 31.6 pg 07/29/2023 16:18 EST MCHC 30.8 g/dL 07/29/2023 16:18 EST RDW-CV 15.9 % 07/29/2023 16:18 EST Platelets 156 x10^3/mcL 07/29/2023 16:18 EST Segs Man 2 % 07/29/2023 16:18 EST Lymph Man 95 % 07/29/2023 16:18 EST Colbert Man 2 % 07/29/2023 16:18 EST Eos Man 0 % 07/29/2023 16:18 EST Baso Man 1 % 07/29/2023 16:18 EST Band Man 0 % 07/29/2023 16:18 EST Abs Neut Man 2.8 x10^3/mcL 07/29/2023 16:18 EST Smudge Cells Rare 07/29/2023 16:18 EST RBC Morph Normal 07/29/2023 16:18 EST Slide Review Man Diff 07/29/2023 16:18 EST Sodium Level 144 mmol/L 07/29/2023 16:18 EST Potassium Level 4.1 mmol/L 07/29/2023 16:18 EST Chloride Level 109 mmol/L 07/29/2023 16:18 EST CO2 25 mmol/L 07/29/2023 16:18 EST Alk Phos 165 unit/L 07/29/2023 16:18 EST AST 22 unit/L 07/29/2023 16:18 EST ALT 14 unit/L 07/29/2023 16:18 EST BUN 14 mg/dL 07/29/2023 16:18 EST Glucose Level 93 mg/dL 07/29/2023 16:18 EST Creatinine Level 1.03 mg/dL 07/29/2023 16:18 EST eGFR AA 61 07/29/2023 16:18 EST eGFR Non-AA 61 07/29/2023 16:18 EST Calcium Level 8.6 mg/dL 07/29/2023 16:18 EST Protein Total 6.6 g/dL 07/29/2023 16:18 EST Albumin Level 3.2 g/dL 07/29/2023 16:18 EST Bilirubin Total 0.4 mg/dL 07/29/2023 16:18 EST LDH 233 unit/L 07/29/2023 16:23 EST Patient/Senior Health Physics Technician Signature Patient Name:DESTINY MAYBERRY I have received this information and my questions have been answered. Patient/Senior Health Physics Technician Name: Patient/Senior Health Physics Technician Signature: Relationship to Patient: Witness Name/Signature: Date: Electronically Signed on: 07/29/2023 20:38 ESTSigned by:[facility] Emergency department Note * Yenny Matta H: PERFORM Event Display: ED Notes Authored Date: Patient Care team information Care Team Personnel Name: Quiana Tejeda MD Position: Physician Member Role: Informed Provider Address: Address: [address] Name: Tonie Leahy DRAMA DIRECTOR Position: Physician Member Role: Nurse Practitioner Address: Address: [address] [place] [address]- [place] Name: Aric Douglass Position: Nurse Member Role: Registered Nurse Name: Herber Enrique MD Position: Physician Member Role: ED Physician Address: Address: [facility] [address] [place] [address]- Name: Nieves Richards MD Position: Physician Member Role: Admitting Physician Address: Address: [address] [place] [address]- [place] Name: Rickie Browning RN Position: Nurse Member Role: ED Nurse Care Team Related Persons Name: JARROD MAYBERRY Address: [address] [place] [address], [phone]
--- OUTSIDE RECORDS SUMMARY | 2023-08-14 02:22 | XMS_ITS | Continuity of Care Document ---
Author Name Unknown Organization [facility] Address [address] [place] [address] Care Team Providers Care Professor Of Anthropology Name Role Phone Quiana Tejeda Primary Care Physician Encounter [facility] Date(s): 05/10/23 - 05/10/[address] [id number] Encounter Diagnosis Right shoulder pain(Discharge Diagnosis) - 05/10/23 Discharge Disposition: Home or Self Care Attending Physician: Xavier Rodriguez MD Admitting Physician: Xavier Rodriguez MD Referring Physician: Xavier Rodriguez MD Allergies, Adverse Reactions, Alerts Substance Reaction Severity Status BEE POLLEN Anaphylactic reaction Unknown Active ibuprofen Nausea Unknown Active erythromycin Anaphylactic reaction Unknown Active cephalexin Anaphylaxis Severe Active iodine topical Anxiety Mild Active zolpidem Other Unknown Active rizatriptan 1 [...] and Plan Future Appointments Future Scheduled Tests Laboratory* Estrogens, Estrone & Estradiol [place] 12/12/22 Radiology* CT Chest w/o Contrast 09/20/22 Immunizations Given and Recorded Vaccine Date Status Refusal Reason influenza virus vaccine, inactivated 03/14/23 Everardo rded [...] Recorded influenza virus vaccine, live 05/10/15 Recorded zoster vaccine, inactivated 11/09/20 Recorded zoster vaccine, inactivated 1 07/11/20 Recorded pneumococcal 23-polyvalent vaccine 04/04/20 Record ed [...] NEEDED, # 6.7 g, 2 Refill(s), Pharmacy: [id number], 168, cm, 11/13/22 21:47:00 EDT, Height/Length Dosing, 124, kg, 11/13/22 21:47:00 EDT, Weight Dosing Start Date: 04/17/23 Status: Ordered ARIPiprazole 5 mg oral tablet 1 tab, Oral, Daily, Dr. Smith pt., # 90 tab, 0 Refill(s), Pharmacy: [id number], 168, cm,11/13/22 21:47:00 EDT, Height/Length Dosing, 124, kg, 11/13/22 21:47:00 EDT, Weight Dosing Start Date: 02/06/23 Stop Date: 05/07/23 Status: Ordered Aspirin Low Dose 81 mg oral delayed release tablet See Instructions, TAKE ONE TABLET BY MOUTH EVERY DAY, # 90 tab, 3 Refill(s), Pharmacy: [facility], 168, cm, 11/13/22 21:47:00 EDT, Height/Length Dosing, 124, kg, 11/13/22 21:47:00 EDT, Weight Dosing Start Date: 02/08/23 Status: Ordered atorvastatin 20 mg oral tablet 1 tab, Oral, Daily, # 90 tab, 0 Refill(s), Pharmacy: [id number], 168, cm, 11/13/22 21:47:00 EDT, Height/Length Dosing, 124, kg, 11/13/22 21:47:00 EDT, Weight Dosing Start Date: 03/07/23 Status: Ordered Botox 200 units injection IM, 200 Unknown, 1 Refill(s), 0 Refill(s) Start Date: 09/23/22 Status: Ordered busPIRone 15 mg oral tablet 15 mg = 1 tab, Oral, BID, Dr. Smith patient, # 60 tab, 2 Refill(s), Pharmacy: [facility], 168, cm, 11/13/22 21:47:00 EDT, Height/Length Dosing, 124, kg, 11/13/22 21:47:00 EDT, Weight Dosing Start Date: 01/08/23 Stop Date: 04/08/23 Status: Ordered clotrimazole 1% topical cream See Instructions, APPLY TOPICALLY TWO TIMES A DAY TO AFFECTED AREA NEEDED, # 15 g, 1 Refill(s), Pharmacy: [id number], 170, cm, 06/07/22 14:50:00 [...] bedtime, # 90 cap, 3 Refill(s), Pharmacy: [facility],167.64, cm, 07/23/22 10:23:00 EST, Height/Length Dosing, 122.47, kg, 07/23/22 10:23:00 EST, Weight Dosing Start Date: 11/08/22 Status: Ordered DULoxetine 60 mg oral delayed release capsule See Instructions, TAKE 2 CAPSULES BY MOUTH AT BEDTIME - DO NOT CRUSH OR SWALLOW, # 180 EA, 0 Refill(s), Pharmacy: [id number], 168, cm, 11/13/22 21:47:00 EDT, Height/Length Dosing, 124, kg,11/13/22 21:47:00 EDT, Weight Dosing Start Date: 03/07/23 Status: Ordered EPINEPHrine 0.3 mg injectable kit 0.3 mg =, IM, Once, PRN other (see comment), Take as needed Start Date: 02/08/21 Status: Ordered fluticasone 50 mcg/inh nasal spray 2 sprays, Nasal - Both Sides, Daily Start Date: 09/19/21 Status: Ordered hydrocortisone 2.5% topical cream 1 li, Topical, Daily, PRN other (see comment), Take as needed, # 30 g, 0 Refill(s), Pharmacy: [facility], 168, cm, 11/13/22 21:47:00 EDT, Height/Length Dosing, 124, kg, 11/13/22 21:47:00 EDT, Weight Dosing Start Date: 11/14/22 Status: Ordered methylphenidate 20 mg oral tablet 20 mg = 1 tab, Oral, TID, # 90 tab, 0 Refill(s), Pharmacy: [facility], 168, cm, 11/13/22 21:47:00 EDT, Height/Length Dosing, 124, kg, 11/13/22 21:47:00 EDT, Weight Dosing Start Date: 04/18/23 Status: Ordered Metoprolol Succinate ER 100 mg oral tablet, extended release See Instructions, Take 1 tablet by mouth once daily, # 90 tab, 1 Refill(s), Pharmacy: [id number], 168, cm, 11/13/22 21:47:00 EDT, Height/Length Dosing, 124, kg, 11/13/22 21:47:00 EDT, Weight Dosing Start Date: 01/06/23 Status: Ordered modafinil 200 mg oral tablet See Instructions, 1 tab Oral QAM and noon, # 60 tab, 5 Refill(s), Pharmacy: [facility], 167.64, cm, 07/23/22 10:23:00 EST, Height/Length Dosing, 122.47, kg, 07/23/22 10:23:00 EST, Weight Dosing Start Date: 09/12/22 Status: Ordered montelukast 10 mg oral tablet 10 mg = 1 tab, Oral, every evening, # 90 tab, 3 Refill(s), Pharmacy: [facility], 167.64, cm, 07/23/22 10:23:00 EST, Height/Length Dosing, 122.47, kg, 07/23/22 10:23:00 EST, Weight Dosing Start Date: 09/19/22 Status: Ordered omeprazole 40 mg oral delayed release capsule See Instructions, Take 1 capsule by mouth once daily, # 90 cap, 0 Refill(s), Pharmacy: [id number], 167.64, cm, 07/23/22 10:23:00 EST, Height/Length Dosing, 122.47, kg, 07/23/22 10:23:00 EST, Weight Dosing Start Date: 09/11/22 Status: Ordered ONE TOUCH DELICA PLUS 33G LANCETS ONE TOUCH DELICA PLUS 33G LANCETS Start Date: 04/26/20 Status: Ordered ONETOUCH ULTRA 2 KIT ONETOUCH ULTRA 2 KIT, 0 Refill(s) Start Date: 12/21/21 Status: Ordered Provigil 200 mg oral tablet See Instructions, Take 1 PO QAM and noon, # 60 tab, 5 Refill(s), Pharmacy: [facility], 168, cm, 11/13/22 21:47:00 EDT, Height/Length Dosing, 124, kg, 11/13/22 21:47:00 EDT, Weight Dosing Start Date: 04/01/23 Status: Ordered rOPINIRole 1 mg oral tablet 1 tab, Oral, TID, PRN as needed, # 90 tab, 0 Refill(s), Pharmacy: [id number], 165, cm, 04/18/23 10:10:00 EDT, Height/Length Dosing, 106, kg, 04/18/23 10:10:00 EDT, Weight Dosing Start Date: 05/02/23 Status: Ordered traMADol 50 mg oral tablet 50 mg = 1 tab, Oral, BID, PRN as needed for pain, for 42 days . PRN, # 84 tab, 0 Refill(s), Pharmacy: [facility], 168, cm, 11/13/22 21:47:00 EDT, Height/Length Dosing, 124, kg, 11/13/22 21:47:00 EDT, Weight Dosing Start Date: 03/17/23 Status: Ordered traZODone 50 mg oral tablet 50 mg = 1 tab, Oral, every night at bedtime, # 90 tab, 3 Refill(s), Pharmacy: [facility]58,167.64, cm, 07/23/22 10:23:00 EST, Height/Length Dosing, 122.47, kg, 07/23/22 10:23:00 EST, Weight Dosing Start Date: 11/08/22 Status: Ordered Trelegy Ellipta 200 mcg-62.5 mcg-25 mcg/inh inhalation powder 1 puffs, Inhale, Daily Start Date: 09/19/21 Status: Ordered Trulicity Pen 3 mg/0.5 mL subcutaneous solution 3 mg = 0.5 mL, Subcutaneous, every week, rotate injection sites, # 2 mL, 0 Refill(s), Pharmacy: [facility], 168, cm, 11/13/22 21:47:00 EDT, Height/Length Dosing, 124, kg, 11/13/22 21:47:00 EDT, Weight Dosing Start Date: 01/17/23 Status: Ordered Trulicity Pen 3 mg/0.5 mL subcutaneous solution See Instructions, INJECT THE CONTENTS OF ONE SYRINGE UNDER THE SKIN ONCE WEEKLY, # 2 mL, 2 Refill(s), Pharmacy: [facility], 168, cm, 11/13/22 21:47:00 EDT, Height/Length Dosing, 124, kg, 11/13/22 21:47:00 EDT, Weight Dosing Start Date: 04/07/23 Status: Ordered venlafaxine 150 mg oral capsule, extended release 150 mg = 1 cap, Oral, every night at bedtime, Dr. Smith patient, # 90 cap, 0 Refill(s), Pharmacy: [facility], 168, cm, 11/13/22 21:47:00 EDT, Height/Length Dosing, 124, kg, 11/13/22 21:47:00 EDT, Weight Dosing Start Date: 03/08/23 Stop Date: 06/06/23 Status: Ordered venlafaxine 37.5 mg oral capsule, extended release 37.5 mg = 1 cap, Oral, Daily, Dr. Smith patient, # 90 cap, 0 Refill(s), Pharmacy: [facility], 168, cm, 11/13/22 21:47:00 EDT, Height/Length Dosing, 124, kg, 11/13/22 21:47:00 EDT, Weight Dosing Start Date: 03/08/23 Stop Date: 06/06/23 Status: Ordered Problem List Condition Confirmation Course Effective Dates Status H ealth Status Informant Angina pectoris 1 Confirmed Active Arthropathy Confirmed Active Asthma Confirmed Active Backache Confirmed Active Bipolar disorder with moderate depression Confirmed Active Trochanteric bursitis of right hip Confirmed Active Candidiasis Confirmed 03/13/16 Active Carpal tunnel syndrome Confirmed Active Cataplexy and narcolepsy 2 Confirmed Active Chest pain Confirmed 03/13/16 Active Chronic back pain Confirmed 03/13/16 Active Chronic lymphoid leukemia in relapse 3 Confirmed 01/26/20 Active Chronic obstructive lung disease 4 Confirmed 04/06/19 Active Chronic pain Confirmed 03/13/16 Active Bipolar 1 disorder, depressed Confirmed Active Depressive disorder 5 Confirmed Active Depressive disorder Confirmed 01/08/11 Active Diabetes mellitus Confirmed 03/13/16 Active Diarrhea Confirmed Active Essential hypertension Confirmed 03/13/16 Active Excessive daytime sleepiness - normal night sleep Confirmed 03/13/16 Active Fibromyalgia Confirmed 09/08/09 Active Fibromyositis 6 Confirmed Active 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 Active Hyperlipidemia Confirmed Active Hypersomnia Confirmed Active Hypertensive disorder Confirmed Active Hyperthyroidism Confirmed 01/09/16 Active Idiopathic osteoarthritis 7 Confirmed Active Fecal incontinence Confirmed Active Insomnia Confirmed 03/13/16 Active Intertrigo Confirmed 06/13/15 Active Iron deficiency anemia secondary to inadequate dietary iron intake 8 Confirmed 01/26/20 Active Joint pain Confirmed Active Long-term drug therapy Confirmed 03/13/16 Active Low back pain Confirmed 02/10/10 Active Lumbosacral radiculopathy Confirmed Active Lymphedema praecox Confirmed Active Lymphoid leukemia 9 Confirmed 04/06/19 Active Major depressive disorder Confirmed 09/08/09 Active Medication overuse headache Confirmed 04/26/21 Active Migraine without aura Confirmed Active Mixed hyperlipidemia Confirmed Active Morbid obesity Confirmed 03/13/16 Active Myositis Confirmed 03/13/16 Active Narcolepsy Confirmed 03/13/16 Active Neuropathy Confirmed Active Obstructive sleep apnea syndrome 10 Confirmed Active Osteoarthritis Confirmed Active Pain in bilateral legs Confirmed 02/10/10 Active Pain in right knee Confirmed Active Parasomnia Confirmed 03/13/16 Active adult health examination Confirmed Active Annual physical exam Confirmed Active Periodic limb movement disorder Confirmed Active Physical activity finding 11 Confirmed 09/08/09 Active Posttraumatic stress disorder Confirmed Active Prolapsed thoracic intervertebral disc 12 Confirmed 10/19/09 Active Restless legs Confirmed Active Sciatica Confirmed Active Secondary peripheral neuropathy Confirmed 03/13/16 Active Severe obesity Confirmed Active Spinal stenosis of lumbar region Confirmed Active Spinal stenosis of lumbar region 13 Confirmed 09/08/09 Active Tachycardia Confirmed 03/13/16 Active Tendinitis Confirmed 03/13/16 Active Thyroid hormone tests outside reference range Confirmed 03/13/16 Active Thyrotoxicosis Confirmed Active Toxic effect of venom Confirmed Active Transient memory loss Confirmed 03/13/16 Active Type 2 diabetes mellitus without complication 14 Confirmed Active Vitamin B12 deficiency anemia due to dietary causes Confirmed 02/10/20 Active 1From 04-17-2020 visit: Recent treadmill stress test indeterminate as it was aborted due to tolerance and there was minimalST depression with anterolateral leads. Will likely require a nuclear stress test for definitive clearance. Referral generated. Will need to hold in interval time for EGD/colonoscopy 2From 11-03-2021 visit: Taking methylphenidate 20 mg TID, [...] this. She will continue modafinil and methylphenidate. 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 Positive for CD5, CD19, CD20, dim CD22, CD23, and HLA-DR. Negative for FMC-7, CD10, and both lambda and kappa light chains. WBC 10-15k range. Normal H/H and Plt. ANC 2-4k. January 2020 - CT N, CAP stable. Small inguinal adenopathy. 4From 09-20-2021 visit: Breathing at baseline, recovering from covid infection, c/w breathing tx. 5From 08-17-2021 visit: Luz returns to clinic today [...] drawing. 3. She is to follow-up with [facility] in May for her leukemia, COPD, and narcolepsy. 4. RTC in 3 months. 6From 12-10-2018 visit: She tells me she is [...] if she is unable to take it. 7From 11-07-2020 visit: Chronic knee and ankle pains 8Outside Source Comment: Overview: H/o Gastric Bypass. EGD/[place] ordered January 2020 - pending to date. IV iron per Dr Kearney in [place]. 9From 09-20-2021 visit: Pt followed previously with [facility], last seen in 05/2021. WBC showing critically elevated levels at >41. Pt aware of labs, which have also been faxed over to [facility] Dr. Pat. Pt will call for an urgent appt for evaluation. 10From 06-12-2021 visit: KIRA diagnosed years ago, with [...] than half the time was spent in [id number] counseling. 11Outside Source Comment: Overview: Muscle spasms Auto-update: regulatory requirement 12Outside Source Comment: Overview: T7-8, T8-9 asymptomatic 13Outside Source Comment: Overview: 08/23/09 L4-5 mild bilateral lateral recess stenosis MRI 09/28, good transient response to TFESI, noinstability on plain films. Laminectomy, bilateral foraminotomy L4-5 03/09/10 ([place]) 14From 11-21-2021 visit: Doing well on trulicity, will increase dosing to 3 mg Q week. Repeat A1c in January to see trending ofvalue, reports BS have been well controlled and following diabetic diet. Procedures Procedure Date Related Diagnosis Body Site Status Colonoscopy 04/17/23 Completed Colonoscopy 1 06/19/20 Completed EGD - Esophagogastroduodenoscopy 2 06/19/20 Completed Port Removal procedure 12/06/19 Co mpleted Port vascular access insertion 04/05/19 Completed Hysterectomy 3 07/21/10 Completed Repair of inguinal hernia 09/04/94 Completed Tubal ligation 4 07/21/84 Complete d Carpal tunnel release 5 C ompleted section 6 Comple jose Gastric bypass Completed Procedure on back Complet ed Procedure on shoulder 7 C ompleted Reduction mammoplasty Com pleted 1WNL 2unclear anatomy. 3per patient 4(1982) 5Carpal Tunnel Repair right 05/04/08, and left 6three 7x2 Social History Social History Type Response Smoking Status Smoking tobacco use: Former tobacco user;Never; Number used per day: smoked 2ppd; Number of years: 25; Total pack years: 30; Started at age: 9.0; 1 entered on: 02/08/23 Sex Female 1quit in 1994 Patient Care team information Care Team Personnel Name: Quiana Tejeda MD Position: Physician Member Role: Informed Provider Address: Address: [facility] [address] Name: Tonie Leahy NP Position: Physician Member Role: Nurse Practitioner Address: Address: [address] [place] [address] Care Team Related Persons Name: JARROD MAYBERRY Address: [place] [id number]
--- OUTSIDE RECORDS SUMMARY | 2023-08-14 02:22 | XMS_ITS | Continuity of Care Document ---
Author Name Unknown Organization [facility] Address [address] [place] [address] Care Team Providers Care Sports Equipment Repairer Name Role Phone Quiana Tejeda Primary Care Physician [phone] Encounter NCTY_DC Date(s): 07/18/23 - 07/18/[address] [address] Encounter Diagnosis Fecal incontinence(Discharge Diagnosis) - 07/18/23 Discharge Disposition: Home or Self Care Attending Physician: Neymar Dunn MD Admitting Physician: Neymar Dunn MD Referring Physician: Neymar Dunn MD Allergies, Adverse Reactions, Alerts Substance Reaction [...] CT Chest w/o Contrast 09/20/22 Functional Status 07/18/23 Anti-Embolism Device Activity: In place Anti-Embolism Site Condition: No complic ations 07/18/23 Other exposure to Infectious Disease Non e [...] A-hepatitis B vaccine 03/14/23 Recorded SARS-CoV-2 mRNA (tomiken 12y+) bival 04/18/22 Recorded SARS-CoV-2 (COVID-19) mRNA-1273 [...] NEEDED, # 6.7 g, 2 Refill(s), Pharmacy: [facility], 165, cm, 04/18/23 10:10:00 EDT, Height, 107.3, kg, 06/12/23 10:34:00 EST, Weight Dosing Start Date: 06/30/23 Status: Ordered ARIPiprazole 5 mg oral tablet 1 tab, Oral, Daily, # 90 tab, 0 Refill(s), Pharmacy: [facility], 165, cm, 04/18/23 10:10:00 EDT, Height, 107.3, kg, 06/12/23 10:34:00 EST, Weight Dosing Start Date: 06/19/23 Stop Date: 09/17/23 Status: Ordered armodafinil 250 mg oral tablet 250 mg = 1 tab, Oral, Daily, # 30 tab, 5 Refill(s), Pharmacy: [facility], 165, cm, 04/18/23 10:10:00 EDT, Height, 107.3, kg, 06/12/23 10:34:00 EST, Weight Dosing Start Date: 07/04/23 Status: Ordered Aspirin Low Dose 81 mg oral delayed release tablet See Instructions, TAKE ONE TABLET BY MOUTH EVERY DAY, # 90 tab, 3 Refill(s), Pharmacy: [facility], 168, cm, 11/13/22 21:47:00 EDT, Height/Length Dosing, 124, kg, 11/13/22 21:47:00 EDT, Weight Dosing Start Date: 02/08/23 Status: Ordered atorvastatin 20 mg oral tablet 1 tab, Oral, Daily, # 90 tab, 0 Refill(s), Pharmacy: [facility], 168, cm, 11/13/22 21:47:00 EDT, Height/Length Dosing, 124, kg, 11/13/22 21:47:00 EDT, Weight Dosing Start Date: 03/07/23 Status: Ordered Botox 200 units injection IM, 200 Unknown, 1 Refill(s), 0 Refill(s) Start Date: 09/23/22 Status: Ordered busPIRone 15 mg oral tablet 15 mg = 1 tab, Oral, BID, # 180 tab, 0 Refill(s), Pharmacy: [facility], 165, cm, 04/18/2310:10:00 EDT, Height, 107.3, kg, 06/12/23 10:34:00 EST, Weight Dosing Start Date: 06/19/23 Stop Date: 09/17/23 Status: Ordered clindamycin 300 mg oral capsule 300 mg = 1 cap, Oral, BID, # 6 cap, 0 Refill(s), Pharmacy: [facility], 168, cm, 07/18/23 7:04:00 EST, Height, 103, kg, 07/18/23 7:43:00 EST, Weight Dosing Start Date: 07/18/23 Stop Date: 07/21/23 Status: Ordered clotrimazole 1% topical cream See Instructions, APPLY TOPICALLY TWO TIMES A DAY TO AFFECTED AREA NEEDED, # 15 g, 1 Refill(s), Pharmacy: [facility], 170, cm, 06/07/22 14:50:00 EST, Height/Length Dosing, 124, kg, 06/07/22 14:50:00 EST, Weight Dosing Start Date: 07/12/22 Status: Ordered CPAP supplies CPAP supplies, please dispense all CPAP supplies as needed, she is using a Dreamstation 2 and she needs a new full face mask (interested in trying a Resmed Airfit F30i or similar). [facility] Reliable, Supply, See instructions, # 1 EA, 0 Refill(s) Start Date: 01/01/22 Status: Ordered doxepin 25 mg oral capsule 25 mg = 1 cap, Oral, every night at bedtime, # 90 cap, 3 Refill(s), Pharmacy: [facility]58,167.64, cm, 07/23/22 10:23:00 EST, Height/Length Dosing, 122.47, kg, 07/23/22 10:23:00 EST, Weight Dosing Start Date: 11/08/22 Status: Ordered DULoxetine 60 mg oral delayed release capsule 2 cap, Oral, every night at bedtime, DO NOT CRUSH. OR SWALLOW., # 180 EA, 1 Refill(s), Pharmacy: [facility], 165, cm, 04/18/23 10:10:00 EDT, Height, 106, kg, 04/18/23 10:10:00 EDT, Weight Dosing Start Date: 06/02/23 Status: Ordered EPINEPHrine 0.3 mg injectable kit See Instructions, USE DIRECTED, # 2 mL, 0 Refill(s), Pharmacy: [facility], 165, cm, 04/18/23 10:10:00 EDT, Height, 107.3, kg, 06/12/23 10:34:00 EST, Weight Dosing Start Date: 07/05/23 Status: Ordered fluticasone 50 mcg/inh nasal spray 2 sprays, Nasal, Daily, # 16 mL, 0 Refill(s), Pharmacy: [facility], 165, cm, 04/18/23 10:10:00 EDT, Height, 107.3, kg, 06/12/23 10:34:00 EST, Weight Dosing Start Date: 07/05/23 Status: Ordered hydrocortisone 2.5% topical cream 1 li, Topical, Daily, PRN other (see comment), Take as needed, # 30 g, 0 Refill(s), Pharmacy: [facility], 168, cm, 11/13/22 21:47:00 EDT, Height/Length Dosing, 124, kg, 11/13/22 21:47:00 EDT, Weight Dosing Start Date: 11/14/22 Status: Ordered methylphenidate 20 mg oral tablet 20 mg = 1 tab, Oral, TID, # 90 tab, 0 Refill(s), Pharmacy: [facility], 165, cm, 04/18/23 10:10:00 EDT, Height, 107.3, kg, 06/12/23 10:34:00 EST, Weight Dosing Start Date: 07/04/23 Status: Ordered Metoprolol Succinate ER 100 mg oral tablet, extended release 1 tab, Oral, Daily, # 90 tab, 0 Refill(s), Pharmacy: [facility], 165, cm, 04/18/23 10:10:00 EDT, Height, 107.3, kg, 06/12/23 10:34:00 EST, Weight Dosing Start Date: 07/02/23 Status: Ordered modafinil 200 mg oral tablet See Instructions, 1 tab Oral QAM and noon, # 60 tab, 5 Refill(s), Pharmacy: [facility], 165, cm, 04/18/23 10:10:00 EDT, Height, 106, kg, 04/18/23 10:10:00 EDT, Weight Dosing Start Date: 05/31/23 Status: Ordered montelukast 10 mg oral tablet 10 mg = 1 tab, Oral, every evening, # 90 tab, 3 Refill(s), Pharmacy: [facility], 167.64, cm, 07/23/22 10:23:00 EST, Height/Length Dosing, 122.47, kg, 07/23/22 10:23:00 EST, Weight Dosing Start Date: 09/19/22 Status: Ordered omeprazole 40 mg oral delayed release capsule See Instructions, Take 1 capsule by mouth once daily, # 90 cap, 0 Refill(s), Pharmacy: [facility], 165, cm, 04/18/23 10:10:00 EDT, Height, [...] needed, # 90 tab, 0 Refill(s), Pharmacy: [facility], 165, cm, 04/18/23 10:10:00 EDT, Height, 107.3, kg, 06/12/23 10:34:00 EST, Weight Dosing Start Date: 07/04/23 Status: Ordered traMADol 50 mg oral tablet 50 mg = 1 tab, Oral, TID, PRN as needed for pain, # 90 tab, 0 Refill(s), Pharmacy: [facility], 165, cm, 04/18/23 10:10:00 EDT, Height, 107.3, kg, 06/12/23 10:34:00 EST, Weight Dosing Start Date: 06/12/23 Stop Date: 07/12/23 Status: Ordered traZODone 50 mg oral tablet 50 mg = 1 tab, Oral, every night at bedtime, # 90 tab, 0 Refill(s), Pharmacy: [facility]58,165, cm, 04/18/23 10:10:00 EDT, Height, 107.3, kg, 06/12/23 10:34:00 EST, Weight Dosing Start Date: 06/19/23 Stop Date: 09/17/23 Status: Ordered Trelegy Ellipta 200 mcg-62.5 mcg-25 mcg/inh inhalation powder 1 puffs, Inhale, Daily Start Date: 09/19/21 Status: Ordered Trulicity Pen 1.5 mg/0.5 mL subcutaneous solution See Instructions, INJECT THE CONTENTS OF TWO PENS INTO THE SKIN ONCE WEEKLY, # 12 mL, 0 Refill(s), Pharmacy: [facility], 165, cm, 04/18/23 10:10:00 EDT, Height/Length Dosing, 106, kg, 04/18/23 10:10:00 EDT, Weight Dosing Start Date: 05/17/23 Status: Ordered Ubrelvy 50 mg oral tablet 50 mg = 1 tab, Oral, Once, PRN as needed for migraine headache, may repeat dose in 2 hours if needed, # 10 tab, 0 Refill(s), Pharmacy: [facility], 165, cm, 04/18/23 10:10:00 EDT, Height, 107.3, kg, 06/12/23 10:34:00 EST, Weight Dosing Start Date: 06/12/23 Status: Ordered venlafaxine 150 mg oral capsule, extended release 150 mg = 1 cap, Oral, every night at bedtime, # 90 cap, 0 Refill(s), Pharmacy: [facility], 165, cm, 04/18/23 10:10:00 EDT, Height, 107.3, kg, 06/12/23 10:34:00 EST, Weight Dosing Start Date: 06/19/23 Stop Date: 09/17/23 Status: Ordered venlafaxine 37.5 mg oral capsule, extended release 37.5 mg = 1 cap, Oral, Daily, # 90 cap, 0 Refill(s), Pharmacy: [facility], 165, cm, 04/18/23 10:10:00 EDT, Height, [...] Source Comment: Overview: Flow cytometry done at [facility] dated 08/11/2018 CD5 positive monoclonal lymphoproliferative disorder. [...] drawing. 3. She is to follow-up with [facility] in May for her leukemia, COPD, and [...] 7Outside Source Comment: Overview: H/o Gastric Bypass. EGD/[place] ordered January 2020 - pending to date. IV iron per Dr Kearney in [place]. 8From 09-20-2021 visit: Pt followed previously with [facility], last seen in 05/2021. WBC showing critically elevated levels at >41. Pt aware of labs, which have also been faxed over to [facility] Dr. Pat. Pt will call for an [...] than half the time was spent in qbgz-gy-bzcx counseling. 10Outside Source Comment: Overview: Muscle spasms Auto-update: regulatory requirement 11Outside Source Comment: Overview: T7-8, T8-9 asymptomatic 12Outside Source Comment: Overview: 08/23/09 L4-5 mild bilateral lateral recess stenosis MRI 09/28, good transient response to TFESI, noinstability on plain films. Laminectomy, bilateral foraminotomy L4-5 03/09/10 ([place]) 13From 11-21-2021 visit: Doing well on trulicity, [...] 7three 8x2 Results Laboratory List Name Date Glucose POCT 07/18/23 Most recent to oldest [Reference Range]: 1 Glucose POC [74-106 mg/dL] 94 mg/dL (07/18/23 7:16 AM) Vital Signs Most recent to oldest [Reference Range]: 1 2 3 Temperature Oral [35.8-37.3 Deg C] 36.5 Deg C (07/18/23 7:04 AM) Temperature Temporal Artery [36-38 Deg C] 35.9 Deg C *LOW* (07/18/23 10:30 AM) 36.3 Deg C (07/18/23 9:15 AM) 36.1 Deg C (07/18/23 9:02 AM) Temperature Temporal Artery (DegF) [97.3-100 Deg F] 97.34 Deg F (07/18/23 9:15 AM) 96.98 Deg F *LOW* (07/18/23 9:02 AM) Peripheral Pulse Rate [60-100 bpm] 79 bpm (07/18/23 10:30 AM) 90 bpm (07/18/23 10:15 AM) 87 bpm (07/18/23 10:00 AM) Heart Rate Monitored [60-100 bpm] 90 bpm (07/18/23 10:38 AM) 90 bpm (07/18/23 10:30 AM) 85 bpm (07/18/23 10:15 AM) Respiratory Rate [12-24 br/min] 16 br/min (07/18/23 10:00 AM) 18 br/min (07/18/23 9:45 AM) 20 br/min (07/18/23 9:30 AM) Blood Pressure [90-140/60-90 mmHg] 119/54mmHg (07/18/23 10:30 AM) 116/53mmHg (07/18/23 10:15 AM) 118/64mmHg (07/18/23 10:00 AM) Mean Arterial Pressure, Cuff [70-110 mmHg] 72 mmHg (07/18/23 9:10 AM) 76 mmHg (07/18/23 9:05 AM) 76 mmHg (07/18/23 9:02 AM) Weight 103 kg (07/18/23 7:04 AM) Weight Dosing 103.000 kg (07/18/23 7:04 AM) Weight Estimated 124.00 kg (07/10/23 11:18 AM) Height 168 cm (07/18/23 7:04 AM) Body Mass Index 36.49 kg/m2 (07/18/23 7:04 AM) Social History Social History Type Response Smoking Status Smoking tobacco use: Former tobacco user;Never; Number used per day: smoked 2ppd; Number of years: 25; Total pack years: 30; Started [age] age: 9.0; 1 entered on: 02/08/23 Sex Female 1quit in 1994 Implantable Device List Procedure Provider Procedure Date Device Type Site [id number] Unknown 12/08/20 Unknown Chest R Device Identifier Serial Number Lot or Batch Number Manufacturing Date Expiration Date Distinct Identification Code MRI Safety Implantable Status Assigning Authority Unknown Unknown Unknown Unknown Unknown Unknown Unknown [facility] Discharge Instructions Patient Education 07/18/2023 08:49:03 ss Post General Anesthesia / Procedure Dischage Instructions (NCCLAMPRON) General Post Anesthesia / Sedation Discharge Instructions Activities: Do not attempt to drive a vehicle or operate power equipment of any kind for at least 24 hours after discharge from the hospital. Do not consume alcoholic beverages or other mood-altering drugs on the day of surgery. Mild irritation at needle site: Apply warm, moist pack to area for 20 minutes four times a day for 2-3 days. Call physician if persistent redness and/or drainage at needle site. Go to ER or Call the office if: Fever within 24 hours after procedure / Surgery Uncontrollable pain even when taking pain medications as prescribed 07/18/2023 08:21:45 MK - Sacral Nerve Stimulator Implantation, Care After Sacral Nerve Stimulator Implantation, Care After The following information offers guidance on how to care for yourself after your procedure. Your health care provider may also give you more specific instructions. If you have problems or questions, contact your health care provider. What can I expect after the procedure? After the procedure, it is common to have soreness or pain in the incision area. Follow these instructions at home: Medicines ??? Take vljn-wna-nbfynru and prescription medicines only as told by your health care provider. ??? If you were prescribed an antibiotic medicine, take it as told by your health care provider. Donot stop using the antibiotic even if you start to feel better. ??? Ask your health care provider if the medicine prescribed to you requires you to avoid driving or using machinery. Incision care ??? Follow instructions from your health care provider about how to take care of your incisions. Make sure you: ??? No bandage needed. ??? Skin glue will fall off in about two weeks - resist the urge to scratch off sooner. ??? You may shower; no tub baths until cleared by your surgeon. ??? Check your incision area every day for signs of infection. Check for: ??? Redness, swelling, or more pain. ??? Fluid or blood. ??? Warmth. ??? Pus or a bad smell. Activity ??? Do not lift anything that is heavier than 10 lb (4.5 kg) for 1 week. ??? Return to your normal activities as tolerated (with exception of lilfting restrictions). Using the stimulator ??? You will be given a remote control device. This device will allow you to turn your sacral nervestimulator on and off. Follow instructions from your health care provider about how to use this device. ??? Tell all of your health care providers that you have this device. Remind them that you have thedevice before they do any tests or procedures. General instructions ??? If you were given a sedative during the procedure, it can affect you for several hours. Do not drive or operate machinery until your health care provider says that it is safe. ??? Keep all follow-up visits. This is important. Your health care provider may need to adjust the stimulator over several visits until it works well for you. Contact a health care provider if: ??? Your device stops working. ??? The device is not helping your symptoms. ??? You have a fever or chills. ??? You have pus or a bad smell coming from an incision. ??? You have redness, swelling, or more pain around an incision. ??? You have fluid or blood coming from an incision. ??? An incision feels warm to the touch. Summary ??? After the procedure, it is common to have soreness or pain in the incision area. ??? Follow instructions from your health care provider about how to take care of your incision. Also, follow instructions about any activity restrictions. You may need to avoid activities that involve a lot of bending, twisting, or stretching. ??? Tell all of your health care providers that you have this device. Remind them that you have thedevice before they do any tests or procedures. ??? Contact your health care provider if your device stops working, or if it is not helping to treat your symptoms. ??? Contact your health care provider if you have a fever, or if there is redness, warmth, swelling, pain, pus, or a bad smell in or around an incision. This information is not intended to replace advice given to you by your health care provider. Make sure you discuss any questions you have with your health care provider. Document Revised: 02/10/2021 Document Reviewed: 02/10/2021 Elsevier Patient Education ?? 2021 [employer]. Discharge instructions * Dawn Vega: PERFORM Event Display: Discharge Instructions Authored Date: [id number] SADAF MAYBERRY Shantell :1960 Age:63 years Sex:Female Visit Date:07/18/2023 Primary Care Physician: Quiana Tejeda MD Hospital Discharge Instructions We would like to thank you for allowing us to assist you with your healthcare needs. The following includes patient education materials and information regarding your injury/illness. Your Next Steps Scheduled Future Appointments Saturday 8:00 AM EST ?? Where: [facility] [address] [place] [address] Status: Confirmed Saturday 1:30 PM EST ?? With: Neymar Dunn MD Where: [facility] [address] [place] [address] Status: Confirmed 2023 2:30 PM EST ?? Where: [facility] [address] [place] [address] Status: Confirmed Saturday 2:45 PM EST ?? Saturday 9:30 AM EST ?? With: Tonie Leahy NP Where: [facility] [address] [place] [phone] Status: Confirmed Saturday 2:00 PM EST ?? With: Quiana Tejeda MD Where: [facility] [address] [address] Status: Confirmed Saturday 2:20 PM EDT ?? With: Quiana Tejeda MD Where: [address] [address] Status: Confirmed Medications What How Much When Why Instructions Next Dose New clindamycin (clindamycin 300 mg oral capsule) 1 Capsules Oral (given by mouth) 2 times a day Duration: 3 Days Pickup at [facility] Unchanged albuterol (Albuterol (Eqv-Proventil HFA) 90 mcg/ [...] times a day Duration: 90 Days Unchanged clotrimazole topical (clotrimazole 1% topical [...] by mouth) Every night at bedtime Unchanged dulaglutide (Trulicity Pen 1.5 mg/ 0.5 mL subcutaneous solution) See instructions INJECT THE CONTENTS OF TWO PENS INTO THE SKIN ONCE WEEKLY ?? Unchanged DULoxetine (DULoxetine 60 mg oral delayed release capsule) 2 Capsules Oral (given by mouth) Every night at bedtime DO ??NOT ??CRUSH. OR ??SWALLOW. ?? Unchanged EPINEPHrine (EPINEPHrine 0.3 mg injectable kit) See instructions USE DIRECTED ?? Unchanged fluticasone nasal (fluticasone 50 mcg/ inh nasal spray) 2 Sprays Nasal (into the nose) Every day Unchanged fluticasone/ umeclidinium/ vilanterol (Trelegy Ellipta 200 [...] DELICA PLUS 33G LANCETS) Unchanged Other Prescription (Shopitize ULTRA 2 KIT) Unchanged rOPINIRole (rOPINIRole 1 [...] Every day Depressive disorder Duration: 90 Days Pharmacy Information [facility]: [address], [place] [phone] Your Summary Your Care Team Admitting Physician - Neymar Dunn MD Attending Physician - Neymar Dunn MD Primary Care Physician - Quiana Tejeda MD Referring Physician - Neymar Dunn MD Your Diagnosis Fecal incontinence Afib Problems Ongoing - Any problem that you are currently receiving treatment for. 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 H/O: psychiatric disorder Procedures Performed ???Insertion procedure (12/15/2020) Tests Performed/Pending Glucose POCT XR Sacrum/Coccyx 2+ Views?-- Results Pending -- Allergies Bee Stings??(Unknown) Bumble Bee Sting??(Anaphylaxis) Latex??(Swelling, Itching) cephalexin??(Anaphylaxis) macrolide antibiotics??(Anaphylaxis) zaleplon??(Dyspnea) lamoTRIgine??(Urticaria) Ambien Axert??(Muscle pain) BEE POLLEN??(Anaphylactic reaction) Dust Grass SUMAtriptan??(Unknown) Tree Pollen Wellbutrin??(Unknown) ZOLMitriptan??(Unknown) aspirin-dipyridamole??(Unknown) buPROPion??(Unknown) erythromycin??(Anaphylactic reaction) eszopiclone??(Unknown) ibuprofen??(Nausea) mixed grass pollens allergen extract??(Unknown) pregabalin??(Unknown) rizatriptan??(Unknown) sulfa drugs??(Unknown) sulfacetamide sodium ophthalmic??(Unknown) zolpidem??(Other) Devices Implanted/Removed This Visit Notice: You have devices implanted this visit that may not be MRI compatible. Implanted [id number] Chest R ???Power Port 12/09/2020 Education Materials General Post Anesthesia / Sedation Discharge Instructions ? Activities: Do not attempt to drive a vehicle or operate power equipment of any kind for at least 24 hours after discharge from the hospital. ? Do not consume alcoholic beverages or other mood-altering drugs on the day of surgery. ? Mild irritation at needle site: Apply warm, moist pack to area for 20 minutes four times a day for 2-3 days. ? Call physician if persistent redness and/or drainage at needle site. ? Go to ER or Call the office if: ? Fever within 24 hours after procedure / Surgery ? Uncontrollable pain even when taking pain medications as prescribed Sacral Nerve Stimulator Implantation, Care After The following information offers guidance on how to care for yourself after your procedure. Your health care provider may also give you more specific instructions. If you have problems or questions, contact your health care provider. What can I expect after the procedure? After the procedure, it is common to have soreness or pain in the incision area. Follow these instructions at home: Medicines ? Take ernl-dqu-yzwiqft and prescription medicines only as told by your health care provider. ? If you were prescribed an antibiotic medicine, take it as told by your health care provider. Do notstop using the antibiotic even if you start to feel better. ? Ask your health care provider if the medicine prescribed to you requires you to avoid driving or using machinery. Incision care ? Follow instructions from your health care provider about how to take care of your incisions. Make sure you: ? No bandage needed. ? Skin glue will fall off in about two weeks - resist the urge to scratch off sooner. ? You may shower; no tub baths until cleared by your surgeon. ? Check your incision area every day for signs of infection. Check for: ? Redness, swelling, or more pain. ? Fluid or blood. ? Warmth. ? Pus or a bad smell. Activity ? Do not lift anything that is heavier than 10 lb (4.5 kg) for 1 week. ? Return to your normal activities as tolerated (with exception of lilfting restrictions). ? Using the stimulator ? You will be given a remote control device. This device will allow you to turn your sacral nerve stimulator on and off. Follow instructions from your health care provider about how to use this device. ? Tell all of your health care providers that you have this device. Remind them that you have the device before they do any tests or procedures. General instructions ? If you were given a sedative during the procedure, it can affect you for several hours. Do not drive or operate machinery until your health care provider says that it is safe. ? Keep all follow-up visits. This is important. Your health care provider may need to adjust the stimulator over several visits until it works well for you. Contact a health care provider if: ? Your device stops working. ? The device is not helping your symptoms. ? You have a fever or chills. ? You have pus or a bad smell coming from an incision. ? You have redness, swelling, or more pain around an incision. ? You have fluid or blood coming from an incision. ? An incision feels warm to the touch. Summary ? After the procedure, it is common to have soreness or pain in the incision area. ? Follow instructions from your health care provider about how to take care of your incision. Also, follow instructions about any activity restrictions. You may need to avoid activities that involve a lot of bending, twisting, or stretching. ? Tell all of your health care providers that you have this device. Remind them that you have the device before they do any tests or procedures. ? Contact your health care provider if your device stops working, or if it is not helping to treat your symptoms. ? Contact your health care provider if you have a fever, or if there is redness, warmth, swelling, pain, pus, or a bad smell in or around an incision. This information is not intended to replace advice given to you by your health care provider. Make sure you discuss any questions you have with your health care provider. Document Revised: 02/10/2021 Document Reviewed: 02/10/2021 [employer] Patient Education ?? 2021 [employer] Patient/[employer]orer [employer] Signature Patient Name:SADAF MAYBERRY I have received this information and my questions have been answered. Patient/Laborer Powerhouse Name: Patient/Laborer Powerhouse Signature: Relationship to Patient: Witness Name/Signature: Date: Electronically Signed on: 07/18/2023 09:50 ESTSigned by:TPB History and physical note * Neymar Dunn MD: PERFORM Event Display: History and Physical Authored Date: [id number] SADAF MAYBERRY :1960 Age:63 years Sex:Female Visit Date:07/18/2023 Primary Care Physician: Quiana Tejeda MD H&P??reviewed from 06/18/23 (see below). Patient examined,??no significant changes to medical history. Proceed as planned.? Neymar Dunn MD 07/18/2023 ? History of Present Illness Patient with history of chronic lymphoid leukemia,??diarrhea, and fecal incontinence??presents to start her InterStim??trial. ?? Sadaf also recently underwent her colonoscopy (04/18/23-Dr. Dunn) with findings notable for internal hemorrhoids. Scope was successful up to??distal right colon, unable to reach cecum due to a tight angulation into the proximal right colon/cecum. We discussed completing a repeat colonoscopy vs 3D colonography if needed. ?? Pathological results revealed: A. ??COLON, RANDOM, BIOPSY: - ??Colonic mucosa with no significant diagnostic abnormalities.? B. ??COLON, DISTAL TRANSVERSE, BIOPSY: - ??Colonic mucosa with focal hyperplastic change.? C. ??COLON, SIGMOID AND RECTUM, BIOPSY: - ??Colonic mucosa with focal hyperplastic change. ?? There are no significant medical changes related to symptoms??since last visit. Review of Systems A complete 12 point ROS was obtained and negative except for those mentioned in the HPI.?? Physical Exam General: NAD, A+O x4 ?? Pulm: Non-labored breathing pattern ?? Cardio: RRR ?? Abdominal: Soft, NT, ND Procedure [employer] - PNE ? CPT 56657???Percutaneous implantation of neurostimulator electrodes; sacral nerve (transforaminal placement) Note: Modifier (-59 or -51 may apply if multiple leads are placed) ?? Patient was properly identified and placed in prone position. Pillows were placed under lower abdomen to flatten sacrum and under shins to allow the toes to dangle freely. The patient???s foot and the long Test Stimulator Cable was connected to the grounding pad and to the external testing stimulator. Patient was prepped and draped in usual sterile fashion. Anatomic landmarks marked: 11 cm from the tip of the coccyx, 2 cm laterally on both sides. Local anesthetic was administered and a foramen needle was placed at a 60 degree angle into the S3 foramen. ?? Proper S3 needle position was confirmed by patient sensation of stimulation, direct observation of the lifting of the perineum or ???bellowing,?? and observation of plantar flexion of the great toe utilizing the test stimulator and the j-hook on the patient cable. The foramen needle stylet was removed and a percutaneous lead was inserted to proper depth using 3.5?? lead markers. Lead placement was tested and confirmed by connecting the patient cable j-hook; the needle was taken out over the lead. The above procedure was performed again on the opposite side and all appropriate responses wereagain verified. The leads were connected to the short test stimulator cables and grounding pad. Patient was cleaned off and the entire region was covered with Tegaderm. Estimated blood loss was minimal. Using the external test stimulator, the patient was programmed to optimum sensation via the leadand given instructions on utilizing the external test stimulator prior to discharge. ?? A diary will be kept until return appointment to my office to discuss results of this test stimulation. ?? The procedure was well tolerated. ?? [employer] rep, Clary Mercedes, was present during the procedure.?? Assessment/Plan Diarrhea??78316 ?? Fecal incontinence??70551 ?? 63??yo??F with history of chronic lymphoid leukemia,??diarrhea, and fecal incontinence??presents tostart her InterStim??trial. Sadaf has exhausted conservative management including, but not limited to, dietary changes, optimization of toilet habits, otc medication. Since she has essentially failed non-operative management and there is significant negative impact on her quality of life, the next step is the PNE (and eventually InterStim if successful). ?? Successfully implanted bilateral InterStim device in office today, which she tolerated well. ?? F/u in one week following device placement for SNS efficacy reassessment. ?? Answered all questions. Patient understood and agreed to this plan. I have reviewed the EMR, including records from PCP, specialists along with review of imaging/diagnostics, which were discussed with the patient where applicable to current presentation. ?? Note was created with the assistance of a remote scribe,??Dinesh Stover. ?? UPDATE Sadaf has been experiencing FI for over 6 months. Severity as assessed with a Wexner??score of 18 (max of 20), see below. ?? She had significant improvement during her PNE trial, with??more than 50% reduction in FI episodes during the 7 day trial. Given her failure with previous conservative management options, along with the excellent outcome during the PNE, will plan for InterStim placement in the near future.? Incontinence type? Frequency Solid Stool? 2 -?? Less than once a week but at least once a month Liquid Stool? 4 -?? At least once a day Gas ?? 4 -?? At least once a day Wears Pad ?? 4 -?? At least once a day Lifestyle Altered ?? 4 -?? At least once a day ?? Interpretation: Scores range from 0-20 0 indicating perfect continence and 20 indicating complete incontinence. Electronically Signed on 07/18/23 07:36 AM Neymar Dunn MD Patient Care team information Care Team Personnel Name: Quiana Tejeda MD Position: Physician Member Role: Informed Provider Address: Address: [facility] [address] Name: Tonie Leahy NP Position: Physician Member Role: Nurse Practitioner Address: Address: [address] [place] [address] Care Team Related Persons Name: JARROD MAYBERRY Address: [place] [phone]
[2023-08-14] MEDS: Normal Saline Flush 10 ML SYR IVP (08:13)
[2023-08-14 08:49] LABS: HCT 32.1 % (36.0-46.0); HGB 9.5 g/dL (11.2-15.7); MCH 30.8 pg (27.0-33.0); MCHC 29.6 % (32.0-36.0); MCV 104 fL (80-95); MPV 11.1 fL (8.0-11.0); Platelet Count 198 10^3/uL (130-400); RBC 3.08 10^6/uL (3.93-5.22); RDW-SD 60.9 fL
[2023-08-14 08:59] LABS: Absolute Lymphocyte Count 155.05 10^3/uL (1.2-3.4); Absolute Monocyte Count 13.78 10^3/uL (0.1-0.8); Absolute Neutrophil Count 3.45 10^3/uL (1.2-6.7)
[2023-08-14 09:00] LABS: ALT 14 U/L (14-59); AST 27 U/L (15-37); Albumin 3.4 g/dL (3.4-5.0); Alkaline Phosphatase 193 U/L (46-116); Anion Gap 8.2 mmol/L (3-11); BUN 14 mg/dL (7-18); Bilirubin, Total 0.4 mg/dL (0.2-1.0); CO2 27.8 mmol/L (21.0-32.0); CREATININE 1.1 mg/dL (0.55-1.02); Calcium 8.8 mg/dL (8.5-10.1); Chloride 108 mmol/L (98-107); Diff Comment Manual Differential; Estimated GFR 56.46 (mL/min/1.73m2); Glucose 99 mg/dL (74-106); LDH 273 U/L (81-234); Potassium 4.5 mmol/L (3.5-5.1); RBC Morphology Normal; Sodium 144 mmol/L (136-145); Total Protein 6.9 g/dL (6.4-8.2); Uric Acid 6.7 mg/dL (2.6-6.0)
[2023-08-14 09:04] LABS: WBC 172.28 10^3/uL (4.4-10.8)
== END 2023-08-21 23:59 | disposition home or self-care (01) ==
LOC: INF 02:16
PROVIDERS: PCP Family Medicine; Visit Provider Internal Medicine Hematology & Oncology
DX: C91.12 Chronic lymphocytic leukemia of B-cell type in relapse (principal); Z45.2 Encounter for adjustment and management of vascular access device
CPT/HCPCS: 36591; 80053; 83615; 84550; 85025

== ENCOUNTER 2023-12-25 11:23 | Outpatient (REF) | payer BC, MEDICAID, SELFPAY ==
[2023-12-25 11:31] LABS: Abs Immature Grans 0.03 10^3/uL (0.0-0.06); Absolute Basophil Count 0.02 10^3/uL (0.0-0.2); Absolute Eosinophil Count 0.01 10^3/uL (0.0-0.7); Absolute Lymphocyte Count 1.33 10^3/uL (1.2-3.4); Absolute Monocyte Count 0.14 10^3/uL (0.1-0.8); Absolute Neutrophil Count 5.02 10^3/uL (1.2-6.7); Basophils % 0.3 %; Eosinophils % 0.2 %; HCT 34.6 % (36.0-46.0); HGB 10.9 g/dL (11.2-15.7); Immature Grans % 0.5 %; Lymphocytes % 20.3 %; MCH 29.8 pg (27.0-33.0); MCHC 31.5 % (32.0-36.0); MCV 95 fL (80-95); MPV 9.2 fL (8.0-11.0); Monocytes % 2.1 %; Neutrophils % 76.6 %; Platelet Count 274 10^3/uL (130-400); RBC 3.66 10^6/uL (3.93-5.22); RDW 12.5 % (11.7-14.6); WBC 6.55 10^3/uL (4.4-10.8)
== END 2023-12-25 11:24 | disposition home or self-care (01) ==
LOC: LBN 11:23
PROVIDERS: Visit Provider Internal Medicine Hematology & Oncology
DX: C91.12 Chronic lymphocytic leukemia of B-cell type in relapse (principal)
CPT/HCPCS: 85025